=== PATIENT | female | born 1940 | race Caucasian/White ===

== ENCOUNTER 2019-06-14 02:47 | Inpatient (IN) | payer OTHER ==
[2019-06-14 03:59] LABS: Absolute Lymphocytes (CBC) 0.8 K/uL (0.7-4.9); Basophils % 1.3 % (0-1.3); Hematocrit 42.1 % (36.0-45.0); Lymphocytes % 16.1 % (15.3-44.8); MPV 10.1 fL (7.6-11.3); RBC Red Blood Cell Count 4.73 M/uL (3.86-4.86)
[2019-06-14 04:02] LABS: Protime INR 0.95
[2019-06-14 04:24] LABS: ALT/SGPT 11 U/L (12-78); AST/SGOT 13 U/L (15-37); Albumin 3.7 g/dL (3.4-5.0); Alkaline Phosphatase 84 U/L (45-117); BUN Blood Urea Nitrogen 25 mg/dL (7-18); Bicarbonate 27 mmol/L (21-32); Bilirubin Direct 0.2 mg/dL (0-0.2); Bilirubin Total 0.3 mg/dL (0.2-1.0); Glucose Level 111 mg/dL (74-106); Potassium 3.5 mmol/L (3.5-5.1); Protein, Total 7.7 g/dL (6.4-8.2); Sodium Level 138 mmol/L (136-145); Troponin (Emerg Dept Use Only) < 0.02 ng/mL (0.0-0.045)
[2019-06-14] MEDS ORDERED: ONDANSETRON 4 MG/2 ML VIAL ONE (05:02)
--- NOTE | 2019-06-14 05:13 | ER ---
Nurse's Notes [facility] Name: Theresa Duran Age: 78 yrs Sex: Female : 1940 Arrival Date: 06/14/2019 Time: 02:56 Bed 4 Private MD: Diagnosis: Transient cerebral ischemic attack, unspecified Presentation: 06/13 02:58 Chief complaint: EMS states: [facility] were toned for Pt with numbness and wh tingling of left side of face. Pt states Hx of stroke and thinks she might be having another stroke. Coronavirus screen: The patient has NOT traveled to a country currently being monitored by the CDC within the last 14 days. Ebola Screen: Patient negative for fever greater than or equal to 101.5 degrees Fahrenheit, and additional compatible Ebola Virus Disease symptoms Patient denies exposure to infectious person. Initial Sepsis Screen: Does the patient meet any 2 criteria? No. Patient's initial sepsis screen is negative. Does the patient have a suspected source of infection? No. Patient's initial sepsis screen is negative. Risk Assessment: Do you want to hurt yourself or someone else? Patient reports no desire to harm self or others. 02:58 Method Of Arrival: EMS: [facility] 02:58 Acuity: LORENA 3 03:04 Onset of symptoms was June 14, 2019. 03:04 Care prior to arrival: IV initiated. 20 GA, in the right hand, Glucose check: 113 Afib on 12 lead EKG. Historical: - Allergies: 03:03 No Known Allergies; - Home Meds: 03:03 levothyroxine 100 mcg tab 1 tab once daily [Active]; simvastatin 20 mg Oral tab 1 tab nightly [Active]; aspirin 81 mg Oral chew 1 tab once daily [Active]; clonidine HCl 0.2 mg Oral tab 1 tab 3 times per day [Active]; carbidopa-levodopa 25-100 mg Oral tab 1 tab 3 times per day [Active]; losartan-hydrochlorothiazide oral 1 tab once daily [Active]; - PMHx: 03:03 CVA; High Cholesterol; Hypertension; Parkinsons; Hypothyroidism; - PSHx: 03:03 Tubal ligation; - Immunization history:: Adult Immunizations not up to date. - Social history:: Smoking status: Patient/guardian denies using. Screenin:03 VAN Screening: Arm Drift: Patient shows no arm weakness. Visual Disturbance: No visual wh disturbance noted. Aphasia: No aphasia noted. Neglect: No neglect noted. 03:05 Abuse screen: Denies threats or abuse. Denies injuries from another. Nutritional wh screening: No deficits noted. Tuberculosis screening: No symptoms or risk factors identified. Fall Risk None identified. Assessment: 04:30 General: Appears in no apparent distress. rv 04:30 Pain: Denies pain. Neuro: Level of Consciousness is awake, alert, obeys commands, rv Oriented to person, place, time, situation. Cardiovascular: Patient's skin is warm and dry. Respiratory: Airway is patent. Derm: Skin is intact. Musculoskeletal: Reports weakness in generalized. 05:22 Reassessment: Patient appears in no apparent distress at this time. Patient and/or rv family updated on plan of care and expected duration. Pain level reassessed. Patient is alert, oriented x 3, equal unlabored respirations, skin warm/dry/pink. patient updated on the test results and plan of care. understood and agreed with the plan of care, awaiting admission. 07:02 Reassessment: Patient appears in no apparent distress at this time. Patient and/or hb family updated on plan of care and expected duration. Pain level reassessed. Patient is alert, oriented x 3, equal unlabored respirations, skin warm/dry/pink. 07:12 Reassessment: PT TO MRI. hb 07:29 Reassessment: REPORT CALLED TO HUGO RN, PT STILL IN MRI AT THIS TIME. hb Vital Signs: 02:58 BP 169 / 108; Pulse 49; Resp 18; Temp 98.2(O); Pulse Ox 95% ; Weight 86.18 kg; Height 5 lp1 ft. 5 in. (165.10 cm); 04:30 BP 154 / 86; Pulse 82; Resp 16; Pulse Ox 99% on R/A; rv 05:00 BP 138 / 96; Pulse 80; Resp 17; Pulse Ox 98% on R/A; rv 02:58 Body Mass Index 31.62 (86.18 kg, 165.10 cm) lp1 NIH Stroke Scale Scores: 07:21 NIHSS Score: 0 rv ED Course: 02:56 Patient arrived in ED. rv 02:59 Triage completed. 03:05 Eric Coker MD is Attending Physician. tw4 03:05 Maintain EMS IV. Dressing intact. Good blood return noted. Site clean \T\ dry. wh 03:05 Arm band placed on right wrist. wh 03:06 Patient has correct armband on for positive identification. Placed in gown. Bed in low wh position. Call light in reach. Side rails up X 1. site monitor on. Pulse ox on. NIBP on. 03:28 CT Stroke Brain w/o Contrast In Process Unspecified. EDMS 03:46 Initial lab(s) drawn, by me, sent to lab. EKG done, by ED staff, reviewed by Eric Coker MD. 04:15 Dustin Henriquez, RN is Primary Nurse. rv 04:18 Stroke CXR 1 View In Process Unspecified. EDMS 05:06 Sae Hernandez MD is Hospitalizing Provider. tw4 07:26 Primary Nurse role handed off by Dustin Henriquez, FRANCES bd 07:28 Debra Taylor, FRANCES is Primary Nurse. hb 08:15 No provider procedures requiring assistance completed. Patient admitted, IV remains in hb place. Administered Medications: 05:00 Drug: Zofran (Ondansetron) 4 mg Route: IVP; Site: right hand; rv 07:00 Follow up: Response: No adverse reaction hb Outcome: 05:12 Decision to Hospitalize by Provider. tw4 08:15 Admitted to Med/surg accompanied by tech, via wheelchair. hb 08:15 Condition: stable 08:15 Instructed on the need for admit, Demonstrated understanding of instructions. 08:39 Patient left the ED. hb NIH Stroke Scale - NIH Stroke Score Date: 06/14/2019 Time: 07:21 Total Score = 0 1a. Level of Consciousness (LOC) - 0(Alert) 1b. Level of Consciousness (LOC) (Year \T\ Age) - 0(Both) 1c. LOC Commands (Open \T\ Closes Eyes/Lunchroom Mother) - 0(Both) 2. Best Gaze (Lateral Gaze Paresis) - 0(Normal) 3. Visual Field Loss - 0(No visual loss) 4. Facial Palsy - 0(Normal) 5a. Left Arm: Motor (10-second hold) - 0(No drift) 5b. Right Arm: Motor (10-second hold) - 0(No drift) 6a. Left Leg: Motor (5-second hold - always test supine) - 0(No drift) 6b. Right Leg: Motor (5-second hold - always test supine) - 0(No drift) 7. Limb Ataxia (finger/nose \T\ heel/guillen - test with eyes open) - 0(Absent) 8. Sensory Loss (pinprick arms/legs/face) - 0(Normal) 9. Best Language: Aphasia (description/naming/reading) - 0(No aphasia) 10. Dysarthria (speech clarity - read or repeat words) - 0(Normal) 11. Extinction and Inattention (visual/tactile/auditory/spatial/personal) - 0(No abnormality) Initials: rv Signatures: Dispatcher [employer] EDMS Geni Lynn Laura, RN RN lp1 Debra Taylor RN RN Rishi Rodríguez Eric Coker MD MD tw4 Dustin Henriquez RN RN rv Corrections: (The following items were deleted from the chart) 03:01 02:58 BP 169 / 108; Pulse 49bpm; Resp 18bpm; Pulse Ox 95%; 86.18 kg; Height 5 lp1 ft. 5 in.; BMI: 31.6; 03:46 03:04 Care prior to arrival: IV initiated. 20 GA, in the right hand, Glucose check: 113 Afib on 12 lead EKG :46 03:05 Maintain EMS IV. Dressing intact. Site clean \T\ dry. [facility]
--- NOTE | 2019-06-14 05:13 | EDPHYS ---
Physician Documentation [facility] Name: Theresa Duran Age: 78 yrs Sex: Female : 1940 Arrival Date: 06/14/2019 Time: 02:56 Bed 4 Private MD: ED Physician Eric Coker HPI: 06/13 03:48 This 78 yrs old Female presents to ER via EMS with complaints of Numbness Of tw4 Face. 03:48 The patient's problem is reported as paresthesias, in left upper extremity, in left tw4 lower extremity, in left side of face. Onset: The symptoms/episode began/occurred just prior to arrival, 1 hour(s) ago. Duration: The episode is continuous. Context: symptoms became apparent at 01:00. The symptoms are alleviated by nothing. The symptoms are aggravated by nothing. Associated signs and symptoms: The patient has no apparent associated signs or symptoms. The patient has not experienced similar symptoms in the past. Historical: - Allergies: 03:03 No Known Allergies; wh - Home Meds: 03:03 levothyroxine 100 mcg tab 1 tab once daily [Active]; simvastatin 20 mg Oral tab 1 tab wh nightly [Active]; aspirin 81 mg Oral chew 1 tab once daily [Active]; clonidine HCl 0.2 mg Oral tab 1 tab 3 times per day [Active]; carbidopa-levodopa 25-100 mg Oral tab 1 tab 3 times per day [Active]; losartan-hydrochlorothiazide oral 1 tab once daily [Active]; - PMHx: 03:03 CVA; High Cholesterol; Hypertension; Parkinsons; Hypothyroidism; - PSHx: 03:03 Tubal ligation; - Immunization history:: Adult Immunizations not up to date. - Social history:: Smoking status: Patient/guardian denies using. ROS: 03:48 Constitutional: Negative for fever, chills, and weight loss, Eyes: Negative for injury, tw4 pain, redness, and discharge, Cardiovascular: Negative for chest pain, palpitations, and edema, Respiratory: Negative for shortness of breath, cough, wheezing, and pleuritic chest pain, Abdomen/GI: Negative for abdominal pain, nausea, vomiting, diarrhea, and constipation, MS/Extremity: Negative for injury and deformity, Skin: Negative for injury, rash, and discoloration. 03:48 Neuro: Positive for numbness, Negative for altered mental status, dizziness, gait disturbance, loss of consciousness, speech changes, syncope, near syncope, tingling, tinnitus, tremor, visual changes. Exam: 03:48 Radiologist reports: no acute changes tw4 03:48 Constitutional: This is a well developed, well nourished patient who is awake, alert, and in no acute distress. Head/Face: Normocephalic, atraumatic. Chest/axilla: Normal chest wall appearance and motion. Nontender with no deformity. No lesions are appreciated. Cardiovascular: Regular rate and rhythm with a normal S1 and S2. No gallops, murmurs, or rubs. Normal PMI, no JVD. No pulse deficits. Respiratory: Lungs have equal breath sounds bilaterally, clear to auscultation and percussion. No rales, rhonchi or wheezes noted. No increased work of breathing, no retractions or nasal flaring. Abdomen/GI: Soft, non-tender, with normal bowel sounds. No distension or tympany. No guarding or rebound. No evidence of tenderness throughout. Back: No spinal tenderness. No costovertebral tenderness. Full range of motion. MS/ Extremity: Pulses equal, no cyanosis. Neurovascular intact. Full, normal range of motion. 03:48 Neuro: Orientation: to person, place \T\ time. Mentation: is normal, Memory: Motor: is normal, Sensation: numbness, that is mild, of the left cheek and left jaw. Vital Signs: 02:58 BP 169 / 108; Pulse 49; Resp 18; Temp 98.2(O); Pulse Ox 95% ; Weight 86.18 kg; Height 5 lp1 ft. 5 in. (165.10 cm); 04:30 BP 154 / 86; Pulse 82; Resp 16; Pulse Ox 99% on R/A; rv 05:00 BP 138 / 96; Pulse 80; Resp 17; Pulse Ox 98% on R/A; rv 02:58 Body Mass Index 31.62 (86.18 kg, 165.10 cm) lp1 NIH Stroke Scale Scores: 07:21 NIHSS Score: 0 rv MDM: 03:05 Patient medically screened. tw4 03:48 Differential diagnosis: CVA, TIA, Parkinson disease. Data reviewed: vital signs, nurses tw4 notes. Data reviewed: lab test result(s), cardiac enzymes, CBC, Flu: hepatic panel, EKG, radiologic studies, CT scan. Data interpreted: Pulse oximetry: Interpretation: normal. Counseling: I had a detailed discussion with the patient and/or guardian regarding: the historical points, exam findings, and any diagnostic results supporting the discharge/admit diagnosis. 06/13 03:06 Order name: Hepatic Function; Complete Time: 05:02 tw 06/13 05:04 Interpretation: Normal except: AST 13; GLOB 4.0; A/G 0.9. tw4 06/13 03:06 Order name: Troponin (emerg Dept Use Only); Complete Time: 05:02 tw 06/13 05:05 Interpretation: Within normal limits: TROPED < 0.02. tw4 06/13 03:06 Order name: Basic Metabolic Panel; Complete Time: 05:02 [facility] 06/13 05:04 Interpretation: Normal except: GLUC 111; BUN 25; GFR 57. tw 06/13 03:06 Order name: CBC with Diff; Complete Time: 05:02 [facility] 06/13 05:05 Interpretation: Within normal limits. tw 06/13 03:06 Order name: Protime (+inr); Complete Time: 05:02 [facility] 06/13 05:05 Interpretation: Within normal limits: PT 11.2. 06/13 03:06 Order name: Ptt, Activated; Complete Time: 05:02 [facility] 06/13 05:04 Interpretation: Normal except: PTT 23.1. tw 06/13 03:06 Order name: CT Stroke Brain w/o Contrast tw 06/13 03:56 Order name: Glucose, Ancillary Testing; Complete Time: 05:02 [facility] 06/13 05:06 Interpretation: Within normal limits: GLUC,ANCIL 112. tw4 06/13 06:20 Order name: Magnesium EDMS 06/13 06:21 Order name: Thyroid Stimulating Hormone EDWI 06/13 06:21 Order name: CBC with Automated Diff EDMS 06/13 06:21 Order name: CBC with Automated Diff EDMS 06/13 06:21 Order name: Comprehensive Metabolic Panel EDMS 06/13 06:21 Order name: Comprehensive Metabolic Panel EDMS 06/13 03:06 Order name: Stroke CXR 1 View tw4 06/13 03:06 Order name: EKG; Complete Time: 03:07 tw4 06/13 03:06 Order name: Accucheck; Complete Time: 03:45 tw4 06/13 03:06 Order name: Cardiac monitoring; Complete Time: 03:45 tw4 06/13 03:06 Order name: EKG - Nurse/Tech; Complete Time: 03:45 tw4 06/13 03:06 Order name: IV Saline Lock; Complete Time: 03:45 tw4 06/13 03:06 Order name: Labs collected and sent; Complete Time: 03:45 tw4 06/13 06:19 Order name: CONS Pharmacy Consult EDMS 06/13 06:19 Order name: CONS Physician Consult EDMS 06/13 06:20 Order name: CONS Physician Consult EDMS 06/13 06:20 Order name: Heart Healthy EDMS 06/13 06:20 Order name: EKG Electrocardiogram EDMS 06/13 06:20 Order name: EKG Electrocardiogram EDMS 06/13 06:21 Order name: Brain With Cont EDMS 06/13 06:21 Order name: Carotid Artery Bilateral EDMS 06/13 03:06 Order name: NPO; Complete Time: 03:45 tw4 06/13 03:06 Order name: O2 Per Protocol; Complete Time: 03:46 tw4 06/13 03:06 Order name: O2 Sat Monitoring; Complete Time: 03:46 tw4 06/13 03:06 Order name: Stroke Swallow Screen; Complete Time: 04:15 tw4 EC:13 Rate is 82 beats/min. Rhythm is irregular. QRS [place] is Normal. [place] interval is normal. tw4 QRS interval is normal. QT interval is normal. No Q waves. T waves are Normal. No ST changes noted. Clinical impression: NSR w/ Non-specific ST/T Changes and LVH. Interpreted by me. Reviewed by me. Administered Medications: 05:00 Drug: Zofran (Ondansetron) 4 mg Route: IVP; Site: right hand; rv 07:00 Follow up: Response: No adverse reaction hb Disposition: 06/14/19 05:12 Hospitalization ordered by Sae Hernandez for Observation. Preliminary diagnosis is Transient cerebral ischemic attack, unspecified. - Bed requested for Telemetry/MedSurg (observation). - Status is Observation. hb - Condition is Stable. - Problem is new. - Symptoms have improved. NIH Stroke Scale - NIH Stroke Score Date: 06/14/2019 Time: 07:21 Total Score = 0 1a. Level of Consciousness (LOC) - 0(Alert) 1b. Level of Consciousness (LOC) (Year \T\ Age) - 0(Both) 1c. LOC Commands (Open \T\ Closes Eyes/Search Engine Optimization Consultant) - 0(Both) 2. Best Gaze (Lateral Gaze Paresis) - 0(Normal) 3. Visual Field Loss - 0(No visual loss) 4. Facial Palsy - 0(Normal) 5a. Left Arm: Motor (10-second hold) - 0(No drift) 5b. Right Arm: Motor (10-second hold) - 0(No drift) 6a. Left Leg: Motor (5-second hold - always test supine) - 0(No drift) 6b. Right Leg: Motor (5-second hold - always test supine) - 0(No drift) 7. Limb Ataxia (finger/nose \T\ heel/guillen - test with eyes open) - 0(Absent) 8. Sensory Loss (pinprick arms/legs/face) - 0(Normal) 9. Best Language: Aphasia (description/naming/reading) - 0(No aphasia) 10. Dysarthria (speech clarity - read or repeat words) - 0(Normal) 11. Extinction and Inattention (visual/tactile/auditory/spatial/personal) - 0(No abnormality) Initials: rv Signatures: Dispatcher [employer] EDMS Bina James RN RN Debra Taylor RN RN Rishi Rodríguez Terrence, MD MD tw Dustin Henriquez RN RN rv Corrections: (The following items were deleted from the chart) 05:56 05:12 Hospitalization Ordered by Sae Hernandez MD for Observation. Preliminary mw diagnosis is Transient cerebral ischemic attack, unspecified. Bed requested for Telemetry/MedSurg (observation). Status is Observation. Condition is Stable. Problem is new. Symptoms have improved. tw4 08:39 05:56 06/14/2019 05:12 Hospitalization Ordered by Sae Hernandez MD for hb Observation. Preliminary diagnosis is Transient cerebral ischemic attack, unspecified. Bed requested for Telemetry/MedSurg (observation). Status is Observation. Condition is Stable. Problem is new. Symptoms have improved. mw
--- NOTE | 2019-06-14 06:02 | P.HP ---
Certification for Inpatient With expected LOS: >2 Midnights Patient will require the following post-hospital care: Home Health Services Practitioner: I am a practitioner with admitting privileges, knowledge of patient current condition, hospital course, and medical plan of care. Services: Services provided to patient in accordance with Admission requirements found in Title 42 Section 412.3 of the Code of Federal Regulations Patient History Date of Service: 06/14/19 Reason for admission: Facial numbness, left leg weakness History of Present Illness: 72 year old female with past medical history of HTN, HLD, Recent Parkinson disease recently diagnosed follows with Dr Jaquez , chronic right- sided tremors; developed sudden onset facial and nevaeh-oral numbness associated with left-sided weakness which started at about 1:00 a.m.. Her symptoms woke up from sleep. She was able to walk to her son's room and called the ambulance. On arrival in the ER, leg weakness seems to be improving but the facial and perioral numbness persist. She did not have any asymmetrical focal weakness. Head CT shows no acute infarct. She has been admitted for possible TIA Home medications list reviewed: Yes - Past Medical/Surgical History Has patient received pneumonia vaccine in the past: No Diabetic: No -: Hypertension -: Parkinson's disease-recently diagnosed -: Hyperlipidemia -: Hypothyroidism Past Surgical History: Patient denies surgical history - Social History Smoking Status: Never smoker Alcohol use: No CD- Drugs: No Caffeine use: No Review of Systems 10-point ROS is otherwise unremarkable Physical Examination - Physical Exam General: Alert, Oriented x3, Obese HEENT: Atraumatic, Normocephalic, PERRLA, Mucous membr. moist/pink Neck: Supple, 2+ carotid pulse no bruit, JVD not distended Respiratory: Clear to auscultation bilaterally, Normal air movement Cardiovascular: Normal pulses, Regular rate/rhythm, Normal S1 S2 Gastrointestinal: Normal bowel sounds, Soft and benign, Non-distended Musculoskeletal: No clubbing, No swelling Integumentary: No rashes, No breakdown Neurological: Normal strength at 5/5 x4 extr, Sensation intact, Other (tremors b /l UE , more over right . No protonor drift) - Studies Laboratory Data (last 24 hrs) 06/14/19 03:40: PT 11.2, INR 0.95, APTT 23.1 L 06/14/19 03:40: WBC 5.3, Hgb 14.2, Hct 42.1, Plt Count 179 06/14/19 03:40: Sodium 138, Potassium 3.5, BUN 25 H, Creatinine 0.96, Glucose 111 H, Total Bilirubin 0.3, AST 13 L, ALT 11 L, Alkaline Phosphatase 84 Imagings Data: head CT - negative Assessment and Plan - Problems (Diagnosis) (1) TIA (transient ischemic attack) Current Visit: Yes Status: Acute (2) Parkinson disease Current Visit: Yes Status: Acute (3) HTN (hypertension) Current Visit: Yes Status: Acute (4) HLD (hyperlipidemia) Current Visit: Yes Status: Acute (5) Hypothyroidism Current Visit: Yes Status: Acute - Advance Directives Does patient have a Living Will: No Does patient have a Durable POA for Healthcare: No - Code Status/Comfort Care Code Status Assessed: Yes Physician Review: Patient Assessed, Agree with Above Assessment and Plan Physician Review Additional Text: # left-sided weakness-resolved no appreciable weakness on physical exam -still subjective feeling of nevaeh-oral numbness -possibly due to TIA -we will obtain magnesium/tsh to rule out metabolic causes of numbness -we will obtain a UA to rule UTI -will obtain MRI of the brain compared to previous one from 3 months ago -will consult Neurology # hypertension-controlled, will hold all BP medication now to allow permissive hypertension - if CVA ruled out , then restart blood pressure medication for better control Time Spent Managing Pts Care (In Minutes): 60
[2019-06-14] MEDS ORDERED: MORPHINE 2 MG/ML SYR IV PRN (06:13)
--- NOTE | 2019-06-14 08:49 | EKG ---
Test Date: 2019-06-14 Test Time: 03:34:28 Personal Injury Legal Assistant: LOREN MEASUREMENT RESULTS: Intervals: Rate: 82 AR: QRSD: 116 QT: 394 QTc: 460 Ethel: P: AR: QRS: -2 T: 109 INTERPRETIVE STATEMENTS: Sinus rhythm occasional premature ventricular complexes Intraventricular conduction delay Cannot rule out Septal infarct, age undetermined ST & T wave abnormality, consider lateral ischemia Abnormal ECG Compared to the ECG from 2005 PVC s are now present Septal infarct is now present Intraventricular conduction delay is now present Electronically Signed On 06-14-19 08:48:13 CDT by Ian Luque
--- NOTE | 2019-06-14 08:54 | RAD REPORT ---
EXAM DESCRIPTION: RAD - Chest Single View - 06/14/2019 4:18 am CLINICAL HISTORY: .. Chest pain. COMPARISON: No comparisons FINDINGS: Portable technique limits examination quality. The lungs are grossly clear. The heart is normal in size. No displaced fractures. IMPRESSION: No acute intrathoracic process suspected.
--- NOTE | 2019-06-14 09:07 | RAD REPORT ---
EXAM DESCRIPTION: US - CP - 06/14/2019 7:02 am CLINICAL HISTORY: cva Headache, drowsiness, CVA symptomology COMPARISON: Carotid Artery Bilateral dated 03/06/2019 TECHNIQUE: Real-time sonographic evaluation of both carotid systems was performed. Doppler interroga tion was performed with waveform tracing bilaterally. FINDINGS: Normal high resistance waveforms are noted in both external carotid arteries. The common c arotid arteries and internal carotid arteries show normal low resistance waveforms. No significant plaque formation is seen. Peak systolic and end diastolic velocity values and the ICA/ CCA ratios are in the non-hemodynamically significant range. Antegrade flow seen in both vertebral arteries. IMPRESSION: Mild hard plaque is seen in both proximal internal carotid arteries. No evidence of a hemodynamically significant stenosis.
--- NOTE | 2019-06-14 09:24 | RAD REPORT ---
EXAM DESCRIPTION: MRI - Brain W/Wo Cont - 06/14/2019 7:50 am CLINICAL HISTORY: TIA Headache, drowsiness, CVA symptomology COMPARISON: Ct Stroke Brain Wo Cont dated 06/14/2019; Brain Wo Cont dated 02/27/2019 TECHNIQUE: Multi-sequence, multiplanar MR imaging of the brain was performed with contrast. FINDINGS: Moderate T2 and FLAIR hyperintensity in the periventricular and deep white matter is prese nt compatible with chronic microvascular ischemia.10 mm area restricted diffusion is present in the r ight basal ganglia posteriorly suggesting small nonhemorrhagic CVA. Punctate hypointensity within thi s region is also present. No edema or shift of midline structures. No hemorrhage seen.No intracranial mass. DWI is negative for acute CVA. The midline structures are normally formed. Mastoid air cells and paranasal sinuses are clear. Post-contrast images show no abnormal enhancement to suggest tumor or infection. IMPRESSION: Acute nonhemorrhagic 10 mm infarct suspected right basal ganglia.
[2019-06-14 09:54] VITALS: BMI 30.7
--- NOTE | 2019-06-14 10:30 | CON ---
History Of Present Illness: Mrs. Duran is 78. She came to the hospital because the left side of he r face tingle. Her left arm would not work appropriately. It felt numb and she could not move it an d her left leg was weak. Most of that resolved but she still has symptoms in her left arm. The diag nosis is she had a TIA with a residual ischemic neurological deficit. All of our vascular studies ar e still pending, but in February 2019 just a few months ago, a carotid Doppler was normal. I believe some other studies are going to be done. The patient does not have a history of AFib, but she does admit to feeling her heart race, is quite reluctant to actually discuss how much it was. She fought off the questions, but apparently several times a week, she will feel her heart race. She thinks it goes on for a few minutes at a time. She did not think it goes on for hours at a time. She never so ught medical attention for it. The patient has never had myocardial infarction, any vascular surgery . She has hypertension and Parkinson disease. Medications: She takes simvastatin, carbidopa levodopa, olmesartan, hydrochlorothiazide, clonidine, levothyroxine, and aspirin. Allergies: NONE. Social History: Uses no tobacco. Physical Examination: General: She appears to be her stated age of 78, 5 feet 6 inches, 190 pounds. Alert, oriented, plea segundo. No speech abnormalities. Lungs: Clear. There is no carotid bruit. Heart: Within normal limits. Abdomen: Soft. Extremities: Normal. Impression: The patient is having transient ischemic attacks without a vascular explanation for it, now it looks like she has had a small stroke 10 mm right basal ganglia that would account for the sym ptoms that she is having and will explain everything. I think we have to decide whether she has atri al fibrillation or not, in which case an anticoagulant therapy would change and several other things would change, so whenever she is ready to be discharged home, she should get an event monitor that go es on for a month. If that fails to detect anything, she still has transient ischemic attacks or str okes, then she should have an implanted loop recorder. I suspect that her neurological symptoms may largely be caused by atrial fibrillation and transient ischemic attacks at least it is a possibility. We need to examine carefully. The carotid artery ultrasound done this morning just shows mild plaq ue. No hemodynamically significant stenosis. No ulcerated plaque. SH/MODL Voice ID: [id number] Report ID: [id number]
[2019-06-14] MEDS ORDERED: ACETAMINOPHEN 500 MG TAB PO PRN (12:40)
--- NOTE | 2019-06-14 12:54 | RAD REPORT ---
EXAM DESCRIPTION: Ct Stroke Brain Wo Cont ADDENDUM #1 Findings directly communicated to Dr. Eric Coker at 0339 hours on 06/14/2019. Electronically signed by: Mony Elder DO 06/14/2019 3:41 AM CDT End of Addendum CT HEAD WITHOUT CONTRAST CLINICAL HISTORY: WEAKNESS COMPARISON: MRI brain without contrast 02/27/2019. TECHNIQUE: Axial unenhanced CT imaging of the brain. Reformatted coronal and sagittal images obtaine d. This examination was performed according to our departmental dose optimization program, which include s automated exposure control, adjustment of the mA and/or kV according to patient size and/or use of iterative reconstruction technique. FINDINGS: There is significant decreased white matter attenuation throughout both cerebral hemispher es due to chronic microvascular ischemic change. There is a hypodensity within the left posterior tem poral parietal periventricular white matter due to remote lacunar infarct. There is no intracranial b leed. No mass or midline shift. No hyperdense vessel. There is mild prominence of the ventricles and extra-axial fluid spaces due to cortical volume loss. Asymmetry ventricle size is within normal varia bility. Normal cerebellum and vermis. Fourth ventricle is midline. No cerebellar tonsillar ectopia. Sella con tents appear normal. Intraorbital contents are normal. Clear paranasal sinuses. Mastoid air cells are partially opacified on the right side and clear on the left side. Intact skull base and calvarium. Unremarkable scalp sof t tissues. IMPRESSION: 1. Mild generalized atrophy with significant chronic microvascular ischemic change. No i ntracranial acute finding. Please note, acute infarct could be obscured by the underlying chronic whi te matter disease. If there is high clinical concern for acute infarction, MRI brain recommended. 2. Mild right mastoid effusion. Electronically signed by: Mony Elder DO 06/14/2019 3:38 AM CDT Due to temporary technical issues with the PACS/Fluency reporting system, reports are being signed by the in house radiologist as a courtesy to ensure prompt reporting. The interpreting radiologist is f ully responsible for the content of the report.
--- NOTE | 2019-06-14 13:43 | ECHO ---
HEIGHT: 5 ft 6 in WEIGHT: 190 lb 0 oz DATE OF STUDY: 06/14/[address]: Ian Luque MD 2-DIMENSIONAL: YES M.MODE: YES DOPPLER: YES COLOR FLOW: YES TDS: PORTABLE: DEFINITY: BUBBLE STUDY: DIAGNOSIS: STROKE CARDIAC HISTORY: CATHERIZATION: NO SURGERY: NO PROSTHETIC VALVE: NO PACEMAKER: NO MEASUREMENTS (cm) DIASTOLIC (NORMALS) SYSTOLIC (NORMALS) IVSd 1.0 (0.6-1.2) LA Diam 2.6 (1.9-4.0) LVEF 60% LVIDd 4.3 (3.5-5.7) LVIDs 2.9 (2.0-3.5) %FS 32% LVPWd 1.2 (0.6-1.2) Ao Diam 3.5 (2.0-3.7) 2 DIMENSIONAL ASSESSMENT: RIGHT ATRIUM: NORMAL LEFT ATRIUM: NORMAL RIGHT VENTRICLE: NORMAL LEFT VENTRICLE: NORMAL TRICUSPID VALVE: NORMAL MITRAL VALVE: NORMAL PULMONIC VALVE: NORMAL AORTIC VALVE: NORMAL PERICARDIAL EFFUSION: NONE AORTIC ROOT: NORMAL LEFT VENTRICULAR WALL MOTION: NORMAL DOPPLER/COLOR FLOW: IMPAIRED LEFT VENTRICULAR RELAXATION. MILD TRICUSPID REGURGITATION. NORMAL RIGHT VENTRICULAR SYSTOLIC PRESSURE. COMMENTS: NORMAL 2-DIMENSIONAL ECHOCARDIOGRAM. IMPAIRED LEFT VENTRICULAR RELAXATION. MILD TRICUSPID REGURGITATION. MILD TRICUSPID REGURGITATION. NORMAL SALINE CONTRAST STUDY. NO EVIDENCE OF RIGHT TO LEFT SHUNT. TECHNOLOGIST: CHRIS SOTO
[2019-06-14] MEDS ORDERED: CARBIDOPA/LEVODOPA 25/100 TAB PO SCH (15:00)
[2019-06-14] MEDS ORDERED: ENOXAPARIN 40 MG/0.4 ML SQ SCH (17:00)
[2019-06-14] MEDS: ONDANSETRON 4 MG/2 ML VIAL IV PRN (17:43)
--- NOTE | 2019-06-14 18:12 | PN ---
Date of Progress Note: 06/14/2019 Subjective: Patient seen and examined. Chart reviewed and case discussed with RN. Patient states her weakness on the left side and numbness and tingling on her face have improved. Medications: List reviewed. Physical Examination: Vital Signs: Temperature 98.6, heart rate 104, blood pressure 185/77, respirations 18, O2 of 97% on room air. General: Awake, alert, oriented x3. Elderly female. CV: S1, S2. Regular rate and rhythm. Peripheral pulses present. Respiratory: Moving air well bilaterally. No wheezing or stridor. Gastrointestinal: Abdomen is soft, nontender, nondistended. Positive bowel sounds. Extremities: No clubbing, cyanosis, or edema. NEUROLOGIC: Patient has some weakness on the left upper and lower extremity. Patient's facial numbness is resolved. Sensation decreased to light touch left lower ext Laboratory Data: Sodium 138, potassium 3.5, chloride 106, CO2 of 27, BUN 25, creatinine 0.96, glucose 111, calcium 8.7, AST 13, ALT 11. Troponin less than 0.02. TSH 0.02. Echocardiogram shows ejection fraction of 60%, impaired left ventricular relaxation. No evidence of xsvjp-al-asic shunt. MRI of the brain shows acute nonhemorrhagic 10 mm infarct suspected right basal ganglia. Carotid artery ultrasound shows mild heart plaque seen in both proximal internal carotid arteries. No evidence of hemodynamically significant stenosis. Assessment: 78-year-old female with: 1. Acute cerebrovascular accident, nonhemorrhagic 10 mm infarct in the right basal ganglia. Patient had left-sided weakness and perioral numbness, which have improved but not completely resolved. We will start on stroke guidelines with aspirin and statin and we will add Plavix as patient has been on aspirin previously. Dr. Jaquez is patient's neurologist. He has been consulted. Carotid artery ultrasound shows no stenosis. Echocardiogram does not show left- to-right shunt. 2. History of Parkinson disease. Patient has pill rolling tremor. We will continue home medications as appropriate. 3. Essential hypertension, stable. 4. Mixed hyperlipidemia. Continue statin. 5. Hypothyroidism. Continue Synthroid. TSH is low. 6. Deep vein thrombosis prophylaxis with Lovenox. Plan: Allow permissive hypertension. Follow up on Neurology recommendations, likely discharge in am as patient is making quicker recovery than anticipated. PT/OT eval. ADDENDUM. Patient not wanting to go to inpatient rehab despite not being able to safely ambulate by herself without any assistive devices. Will set up for home health w PT /EVAN Voice ID: [id number] Report ID: [id number] MTDD
[2019-06-14] MEDS ORDERED: CLOPIDOGREL 75 MG TABLET PO ONE (20:15)
[2019-06-14] MEDS ORDERED: ATORVASTATIN 40 MG TAB PO SCH (21:00)
[2019-06-14] MEDS ORDERED: ATORVASTATIN 10 MG TAB PO SCH (21:00)
--- NOTE | 2019-06-14 21:33 | CON ---
Date of Consultation: 06/14/2019 Reason: Stroke. History: 78-year-old lady who came to my attention fairly recently, tremor on the right and gait difficulties. She has right tremor predominant Parkinson disease as part of her workup for that. She had studies. Brain MRI in February of 2019, demonstrated multiple acute to subacute nonhemorrhagic infarcts in bilateral subcortical as well as extensive chronic ischemic change, slightly concerning for cardioembolic process, although there are small infarcts proper. Doppler was negative. She was placed on carbidopa levodopa and she had some improvement in the tremor and the generalized bradykinesia, but then last night she woke up at 2 o'clock in the morning and had left-sided weakness and numbness and worsening gait difficulties where she is really unable walk unassisted. At this point in time the grandson whom she lives with , who is very attentive immediately considered the possibility of stroke, EMS was summoned, and she was brought to the emergency department, not felt to be a tPA candidate as 1; she woke with deficit and 2; symptoms were improving. CT scan was unremarkable. She was admitted to the hospital. Since being admitted , she has continued to have improvement in her symptoms and brain MRI demonstrates acute infarct in the right basal ganglia region 10 mm. Carotid Doppler; no stenosis. Lipids are pending. Patient has improved, but she has now a mild left hemiparesis on top of chronic right tremor dominant Parkinson's and just is having significant impairment in overall mobility. Plavix has been added to her regimen. We will give her a dose tonight and then start her routine tomorrow. We have added aspirin and the carbidopa levodopa at the last visit. Consultation was requested. Past Medical History: Hypertension, hypothyroidism, Parkinson disease. Medications: Currently aspirin, Lipitor 40, Sinemet 25/100 t.i.d., Plavix, Lovenox, Synthroid. Allergies: NONE. Social History: She lives with her grandson. She is generally independent with basic activities of daily living. Family History: Negative. Review of Systems: General: Chronically ill. Eyes: Negative. Ears, Nose, Throat: Negative. Cardiovascular: As alluded to. She has been seen by Cardiology as well as her EKG is somewhat abnormal and she has frequent extra beats on auscultation. Pulmonary: Negative. GI: Negative. : Negative. Musculoskeletal: As alluded to. Neurologic: As alluded to. Psychiatric: Negative. Endocrine: Hypothyroidism. Hematologic: Negative. Physical Examination: Vital Signs: 99, 85, 18, 156/80. General: She is a pleasant lady, lying in bed, in no distress. Heart: Sinus rhythm with frequent extra beats. No carotid bruits. Lungs: Clear. Abdomen: Soft. Bowel sounds present. Neuro: She is awake, alert, oriented. Pupils reactive. Ocular motion full. Visual gallardo full. Facial strength and sensation normal. No aphasia. No dysarthria. Tongue protrudes evenly. Soft palate elevates symmetrically bilaterally. Extremities: Examination of her extremities reveal resting tremor on the right , rigidity and bradykinesia on the right with full strength. Examination of the left reveals minimal rigidity and bradykinesia with full strength, but pronator drift, dyspraxia, and decreased light touch on the left. No cortical extinction. Reflexes are 1/4. Toes are neutral. Cerebellar exam demonstrates no ataxia given the aforementioned. She has significant impairment in bed mobility. She has a left hemiparetic gait on top of chronic shuffling parkinsonian gait and is unable to walk unassisted. Impression: 1. Cerebral infarction, acute right basal ganglia ischemic. 2. Parkinson disease. Plan: 1. Dual anti-platelet therapy. Current recommendation is for 21 to 30 days and then change that over to platelet monotherapy, likely just the Plavix since she had the event despite taking aspirin. She will need a bare minimum Home Health upon discharge. She is not particularly amenable to inpatient rehab, although that is another option and she will additionally need some durable medical equipment like a bedside commode and a shower chair. We will make those arrangements prior to discharge. 2. With regard to the Parkinson disease, we will increase the Sinemet to q.i.d. as it is still not quite ideally controlled. 3. We will check a sedimentation rate and B12 level on the morning as well. Thank you for the consult. We will continue to follow with you. As noted we will be happy to see her back in the office in 2 to 4 weeks post discharge. BAILEY Voice ID: [id number] Report ID: [id number] CAR
[2019-06-14] MEDS: CARBIDOPA/LEVODOPA 25/100 TAB PO SCH (21:59)
[2019-06-15 05:01] LABS: Basophils % 1.3 % (0-1.3); Hematocrit 40.8 % (36.0-45.0); Lymphocytes % 21.7 % (15.3-44.8); MPV 10.1 fL (7.6-11.3)
[2019-06-15] MEDS: ONDANSETRON 4 MG/2 ML VIAL IV PRN (05:42)
[2019-06-15 05:48] LABS: Albumin 3.5 g/dL (3.4-5.0); Bilirubin Total 0.6 mg/dL (0.2-1.0); Potassium 3.5 mmol/L (3.5-5.1); Protein, Total 7.4 g/dL (6.4-8.2)
[2019-06-15] MEDS ORDERED: LEVOTHYROXINE SOD 0.1 MG TAB PO SCH (06:00)
[2019-06-15] MEDS: CARBIDOPA/LEVODOPA 25/100 TAB PO SCH (08:12)
[2019-06-15 08:22] VITALS: O2SAT 94
[2019-06-15 08:32] VITALS: TEMP 97.3
[2019-06-15 10:29] VITALS: BP 140/85
--- NOTE | 2019-06-15 10:42 | PN ---
She has been followed by Dr. Luque for possibility of atrial fibrillation. Patient had come in with a TIA. So far on monitor she did not have any atrial fibrillation. She also has a history of hyper tension and parkinsonism. She is feeling much better neurologically, her weakness has resolved. Rem ains in sinus rhythm. No cardiac complaint. From out standpoint she can go home and I will make arr angements for her to have a 7 or 14 day event monitor as an outpatient to see if she has an any atria l fibrillation, at which time anticoagulation would be indicated. CORA/EVAN Voice ID: [id number] Report ID: [id number]
[2019-06-15] MEDS ORDERED: ASPIRIN 81 MG CHEWABLE TABLET PO SCH (13:14)
[2019-06-15] MEDS ORDERED: CLOPIDOGREL 75 MG TABLET PO SCH (13:15)
--- NOTE | 2019-06-15 14:43 | DS ---
Date of Discharge: 06/15/2019 Consultants: 1.Dr. Jaquez with Neurology. 2.Dr. Stoner and Dr. Luque with Cardiology. Admitting Diagnoses: 1.Left-sided weakness. 2.Parkinson disease. 3.Essential hypertension. 4.Hyperlipidemia. 5.Hypothyroid. Discharge Diagnoses: 1.Acute cerebrovascular accident, nonhemorrhagic 10 mm infarct in right basal ganglia. Symptoms imp roving, not completely resolved. 2.History of Parkinson disease. 3.Essential hypertension. 4.Mixed hyperlipidemia. 5.Hypothyroidism. Hospital Course: Patient is a 78-year-old female with past medical history of hypertension, hyperlip idemia, Parkinson disease, comes in with left-sided weakness, facial numbness. Patient was admitted to the hospital to rule out CVA. Her head CT scan was initially negative. MRI of the brain was done , which did show a 10 mm nonhemorrhagic infarct in the left basal ganglia. Her carotid artery ultras ound did not show any acute hemodynamically significant stenosis. Echocardiogram was also done, show ed 60% EF. No shunt was found. Patient did have some mild tricuspid regurg and impaired left ventri cular relaxation. Dr. Luque and Dr. Stoner also saw the patient. She did not have any abnormaliti es on her tele. She will likely need to have an event monitor placed to rule out any sort of cardioe mbolic phenomenon for her stroke. Patient usually takes baby aspirin. Therefore, Plavix was added t o her regimen. Dose of statin was also increased. Patient was seen by her neurologist, Dr. Jaquez. Overall, she did well. Her facial numbness improved, however, she continued to have weakness on her left lower extremity and had difficulty with her gait and ambulating in addition to her Parkinson dis ease. Therefore, the patient was referred to inpatient rehab. However, she refused, did not wish to go to inpatient facility, therefore as she had made quicker than anticipated progress which usually would have taken at least a couple of midnights. Patient was discharged home with home health with P T. Patient understands the risks of fall and resultant consequences such as hip fracture, brain blee d, etc. Not limited to those events and including . Patient voiced understanding. Family was also at the bedside. She wished to go home with this endemic. Patient was discharged home in a stab le condition. Activity: Fall precautions. Ambulate with assist. Medications: As per medication reconciliation list. Diet: Heart healthy. Followup: Follow up with primary care physician in 2 to 3 days. Follow up with Dr. Jaquez in 2 weeks with Neurology. Return to ER for worsening condition. Physical Examination: General: Awake, alert, oriented x3. No acute distress. Elderly female. CV: S1, S2. Respiratory: Moving air well bilaterally. Abdomen: Soft, nontender, nondistended. Positive bowel sounds. Extremities: No clubbing, cyanosis, or edema. Neuro: The patient has some decreased sensations to light touch in left lower extremity. Some weakn ess on the left side, specifically left lower extremity. Patient has a pill-rolling tremor on the ri ght. Time Spent: Total time spent discharging patient was 41 minutes. /EVAN Voice ID: [id number] Report ID: [id number]
--- NOTE | 2019-06-15 16:55 | EKG ---
Test Date: 2019-06-15 Test Time: 09:01:38 Senior Accountant Cpa: JACQUI MEASUREMENT RESULTS: Intervals: Rate: 94 FL: 200 QRSD: 110 QT: 370 QTc: 462 North: P: 51 FL: 200 QRS: -39 T: 120 INTERPRETIVE STATEMENTS: Sinus rhythm with sinus arrhythmia with occasional premature atrial complexes Left axis deviation Intraventricular conduction delay non specific ST and T abnormality Cannot rule out Septal infarct, age undetermined Abnormal ECG Compared to ECG 06/14/2019 03:34:28 Myocardial infarct finding still present Electronically Signed On 06-15-19 16:54:50 CDT by Ian Luque
== END 2019-06-15 11:50 | disposition home health service (06) | DRG 65 ==
LOC: ER 02:47 → ERHOLD 06:43 → 4TH 07:42 → OBSVTOIN 11:15
PROVIDERS: ADMIT Internal Medicine; ATTEND Internal Medicine
DX: I63.9 Cerebral infarction, unspecified (principal); G81.94 Hemiplegia, unspecified affecting left nondominant side; I10 Essential (primary) hypertension; G20 Parkinson's disease; E03.9 Hypothyroidism, unspecified; R29.700 NIHSS score 0
CPT/HCPCS: 36415; 70450; 70553; 71045; 80048; 80053; 80061; 80076; 82607; 82947; 83735; 84443; 84484; 85025; 85610; 85652; 85730; 93005; 93306; 93880; 96374; 97110; 97112; 97116; 97161; 99285; G0378; J1650; J2405

== ENCOUNTER 2023-01-14 11:03 | Inpatient (IN) | payer OTHER ==
[2023-01-14 11:26] LABS: Absolute Lymphocytes (CBC) 0.9 K/uL (0.7-4.9); Hematocrit 46.8 % (36.0-45.0); MPV 9.2 fL (7.6-11.3); Platelets 240 thou/uL (152-406); RBC Red Blood Cell Count 5.03 M/uL (3.86-4.86)
[2023-01-14 11:31] LABS: Protime INR 1.16
--- NOTE | 2023-01-14 11:34 | RAD REPORT ---
EXAM DESCRIPTION: CT - Head Brain Wo Cont - 01/14/2023 11:22 am CLINICAL HISTORY: Syncope COMPARISON: 2019 TECHNIQUE: Computed axial tomography of the head was obtained. IV contrast was not requested. All CT scans are performed using dose optimization technique as appropriate and may include automated exposure control or mA/KV adjustment according to patient size. FINDINGS: An intracranial bleed is not seen The ventricles are normal in caliber No extra-axial fluid collection is noted. 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 Fluid within the sinuses/ mastoids is not seen. IMPRESSION: No acute intracranial abnormality is seen If patient's symptoms persist MRI of the brain would be recommended
[2023-01-14 11:54] LABS: Albumin 2.6 g/dL (3.4-5.0); Alkaline Phosphatase 56 U/L (45-117); BUN Blood Urea Nitrogen 17 mg/dL (7-18); Bicarbonate 23 mEq/L (21-32); Bilirubin Direct 0.1 mg/dL (0-0.2); Bilirubin Indirect, Calculated 0.2 mg/dL (0.2-0.8); Bilirubin Total 0.3 mg/dL (0.2-1.0); Glomerular Filtration Rate 77 ml/min (=/>90); Glucose Level 159 mg/dL (74-106); Protein, Total 5.7 g/dL (6.4-8.2); Sodium Level 140 mEq/L (136-145); Troponin High Sensitivity 45.6 pg/mL (<58.9)
[2023-01-14 11:55] LABS: ALT/SGPT < 10 U/L (13-56); AST/SGOT 11 U/L (15-37); Magnesium 1.9 mg/dL (1.6-2.4); Potassium 3.8 mEq/L (3.5-5.1)
[2023-01-14] MEDS ORDERED: NA CHLORIDE 0.9% 1,000 ML ONE (11:59)
[2023-01-14 12:05] LABS: Platelet Estimate ADEQ; White Blood Cell Scan OK (OK)
[2023-01-14 12:06] LABS: Blood Morphology Comment NOT SEEN (NOT SEEN)
--- NOTE | 2023-01-14 12:19 | RAD REPORT ---
EXAM DESCRIPTION: Sudhakar Single View01/14/2023 11:26 am CLINICAL HISTORY: Syncope COMPARISON: 2019 FINDINGS: The lungs appear clear of acute infiltrate. The heart is normal size Mediastinum is mildly prominent IMPRESSION: Mediastinum is mildly prominent. This probably indicates either an ectatic or aneurysmal aorta. Further evaluation with CT may be helpful
[2023-01-14 12:59] LABS: Urine Bacteria None Seen /HPF (<20); Urine Bilirubin NEGATIVE (Negative); Urine Blood Negative (Negative); Urine Clarity Turbid (Clear); Urine Color Light-Yellow (Yellow); Urine Glucose NEGATIVE (Negative); Urine Mucus Slight /HPF (None Seen); Urine Protein TRACE (Negative); Urine RBC 21-50 /HPF (None Seen); Urine Urobilinogen Normal (Normal)
--- NOTE | 2023-01-14 13:12 | ER ---
Nurse's Notes [facility] Name: Theresa Duran Age: 82 yrs Sex: Female : 1940 Arrival Date: 01/14/2023 Time: 11:03 Bed 2 Private MD: Diagnosis: Syncope, possible seizure, leukocytosis, UTI Presentation: 01/14 11:06 Chief complaint: Chief complaint: EMS states: "Pt was receiving a Vitamin injection at [address] when she became unresponsive, BP 80's systolic, began vomiting, and had bowel incontinence".EMS reports pt did not complete infusion as reported by [facility] staff. EMS upon scene arrival pt was responsive to verbal stimuli but appeared drowsy and confused. Pt currently awake and A\\T\\O x person and place. Vitamin infusion includes: Vitamin C, Vitamin B-complex, Zinc, amino blend, glutamine, arginine, ornithine, lysine, citrulline, and glutathione (see pt's paper chart for more details). 11:06 Coronavirus screen: At this time, the client does not indicate any symptoms associated [facility] with coronavirus-19. Ebola Screen: Patient denies travel to an Ebola-affected area in the 21 days before illness onset. Initial Sepsis Screen: Does the patient meet any 2 criteria? No. Patient's initial sepsis screen is negative. Does the patient have a suspected source of infection? No. Patient's initial sepsis screen is negative. Risk Assessment: Do you want to hurt yourself or someone else? Unable to obtain Other: Pt confused. Onset of symptoms was January 14, 2023. 11:06 Acuity: LORENA 2 aa5 11:06 Method Of Arrival: EMS: [facility] aa5 11:06 Care prior to arrival: Medication(s) given: Normal saline infusion, 300mls IV aa5 initiated. 20 GA, in the right forearm, Glucose check: 120. Triage Assessment: 15:12 Neuro: Level of Consciousness is awake, alert, obeys commands, Oriented to person, me1 situation. 15:12 Neuro: Reports she was getting an infusion and started feeling bad. When she woke up me1 she was told she had become unreponsive, vomited and was incontinent of stool.. Historical: - Allergies: 11:06 DONEPEZIL; aa5 - Home Meds: 11:57 levothyroxine 75 mcg oral capsule [Active]; clonidine HCl 0.1 mg oral tablet 1 tab 3 me1 times per day [Active]; carbidopa-levodopa 25-100 mg Oral tab 1 tab 4 times per day [Active]; ascorbic acid (vitamin C) 500 mg oral tablet 1 tab 2 times per day [Active]; clopidogrel 75 mg oral tablet 1 tab daily [Active]; lisinopril 10 mg Oral tablet 1 tab daily [Active]; trazodone 50 mg Oral tablet 1 tabs every day at bedtime [Active]; - PMHx: 11:06 CVA; High Cholesterol; Hypertension; Hypothyroidism; Parkinsons; Dementia; Anxiety; aa5 repeated falls; Migraine; Vitamin D deficiency; Thyroid problem; - Immunization history:: Adult Immunizations unknown. - Social history:: Smoking status: unknown. Screenin:10 [facility] ED Fall Risk Assessment (Adult) History of falling in the last 3 months, aa5 including since admission Yes- fall prone (multiple falls) (3 pts) Score/Fall Risk Level 3 or more points = High Risk Oriented to surroundings, Maintained a safe environment, Educated pt \\T\\ family on fall prevention, incl call for assistance when getting out of bed. Abuse screen: No signs of abuse noted. Nutritional screening: No deficits noted. Tuberculosis screening: No symptoms or risk factors identified. Assessment: 11:06 General: Appears comfortable, Behavior is calm, cooperative. Pain: Denies pain. Neuro: aa5 Level of Consciousness is awake, obeys commands, confused, Oriented to person, place. Cardiovascular: Heart tones S1 S2 present Rhythm is regular. Respiratory: Airway is patent Respiratory effort is even, unlabored, Respiratory pattern is regular, symmetrical. GI: Abdomen is round non-distended, Bowel sounds present X 4 quads. Abd is soft and non tender X 4 quads. 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 EENT: No signs and/or symptoms were reported regarding the EENT system. Derm: Skin is pink, warm \\T\\ dry. 11:19 Reassessment: Pt to CT via stretcher . aa5 15:50 General: Called to give report to FRANCES Bingham for the second time. Was told nurse is at me1 lunch and she will call when she gets back. . 16:38 Reassessment: attempt to call report to otilia, no answer at Nurses's station. iw 16:46 Reassessment: Otilia called back to give report, given by myself, primary RN busy with iw EMS pt. Vital Signs: 11:06 BP 102 / 58; Pulse 99; Resp 18 S; Temp 97.5(TE); Pulse Ox 96% on R/A; Weight 52 kg (M); aa5 12:31 BP 122 / 92; Pulse 99; Resp 17; Pulse Ox 97% on 1 lpm NC; me1 13:00 BP 124 / 71; Pulse 98; Resp 16; Pulse Ox 98% on 1 lpm NC; me1 14:00 BP 129 / 68; Pulse 98; Resp 16; Pulse Ox 98% on 1 lpm NC; me1 15:11 BP 135 / 65; Pulse 94; Resp 16; Pulse Ox 98% on 1 lpm NC; me1 ED Course: 11:06 Patient arrived in ED. iw 11:06 Raheem Adams MD is Attending Physician. sp3 11:06 Arm band placed on Patient placed in an exam room, on a stretcher. aa5 11:06 Patient has correct armband on for positive identification. Placed in gown. Bed in low aa5 position. Call light in reach. Side rails up X2. Client placed on continuous cardiac and pulse oximetry monitoring. NIBP monitoring applied. 11:13 Rachel Byers, RN is Primary Nurse. aa5 11:22 Triage completed. aa5 11:23 CT Head Brain wo Cont In Process Unspecified. EDMS 11:28 Chest Single View XRAY In Process Unspecified. EDMS 11:55 Report given to FRANCES Hubbard. aa5 12:51 UAM Sent. me1 13:11 Darryl Gaona is Hospitalizing Provider. sp3 14:56 Chest Angio In Process Unspecified. EDMS 15:11 Provided Education on: POC. Verbalized understanding.. me1 15:11 No provider procedures requiring assistance completed. Patient admitted, IV remains in me1 place. 15:26 Haydee Cano, RN is Primary Nurse. me1 15:26 D-Dimer Sent. me1 Administered Medications: 13:23 Drug: Rocephin - Rocephin (cefTRIAXone) IVPB 1 grams IVPB once over 30 mins; (mix in 50 me1 mL NS) Route: IVPB; Infused Over: 30 mins; Site: right forearm; 15:05 Follow up: Response: No adverse reaction; IV Status: Completed infusion me1 Medication: 15:11 VIS not applicable for this client. me1 Outcome: 13:12 Decision to Hospitalize by Provider. sp3 17:01 Admitted to Med/surg accompanied by nurse, via stretcher, with chart, iw 17:01 Condition: good 17:01 Discharge instructions given to patient, Instructed on the need for admit, 17:02 Patient left the ED. iw Signatures: Dispatcher [employer] Kymberly Hanson RN RN iw Rachel Byers RN RN aa5 Raheem Adams MD MD sp3 Haydee Cano RN RN me1 Corrections: (The following items were deleted from the chart) 11:20 11:06 PMHx: Parkinsons; aa5 aa5 11:29 11:06 Chief complaint: aa5 aa5 11:30 11:06 Chief complaint: EMS states: "Pt was receiving a Vitamin injection at [place] [address] when she became unresponsive, BP 80's systolic, began vomiting, and had bowel incontinence". EMS upon scene arrival pt was responsive to verbal stimuli but appeared drowsy and confused. Pt currently awake and A\\T\\O x person and place. Vitamin infusion includes: Vitamin C, Vitamin B-complex, Zinc, amino blend, glutamine, arginine, ornithine, lysine, citrulline, and glutathione (see pt's paper chart for more details). Chief complaint: EMS states: "Pt was receiving a Vitamin injection at [facility] when she became unresponsive, BP 80's systolic, began vomiting, and had bowel incontinence". EMS upon scene arrival pt was responsive to verbal stimuli but appeared drowsy and confused. Pt currently awake and A\\T\\O x person and place. Vitamin infusion includes: Vitamin C, Vitamin B-complex, Zinc, amino blend, glutamine, arginine, ornithine, lysine, citrulline, and glutathione (see pt's paper chart for more details). aa5
--- NOTE | 2023-01-14 13:12 | EDPHYS ---
Physician Documentation [facility] [place], [place] Name: Theresa Duran Age: 82 yrs Sex: Female : 1940 Arrival Date: 01/14/2023 Time: 11:03 Bed 2 Private MD: ED Physician Raheem Adams HPI: 01/14 11:15 This 82 yrs old Female presents to ER via Unassigned with complaints of Syncope. sp3 11:15 82-year-old female with history of Parkinson's, hypertension who at the shelter is sp3 receiving IV hydration therapy by mobile IV, with an infusion that included vitamin C, multiple B complex vitamins, zinc, and amino acid blend which included glutamine arginine ornithine lysine Citrulline and glutathione, who then proceeded to "go unresponsive" there is bowel and bladder control and then spontaneously regained consciousness. No shaking or visible seizure activity reported by bystanders. EMS was activated and they found her alert and oriented in no acute distress with normal vital signs and transported her to the ED for further evaluation. Currently patient feels improved and almost back to baseline. She currently denies headache, neck pain, fever, URI symptoms, chest pain, shortness of breath, back pain, abdominal pain, nausea, vomiting, diarrhea, focal neurological deficit, numbness or tingling, focal weakness, or any other signs or symptoms on ROS at this time.. Historical: - Allergies: 11:06 DONEPEZIL; aa5 - Home Meds: 11:57 levothyroxine 75 mcg oral capsule [Active]; clonidine HCl 0.1 mg oral tablet 1 tab 3 me1 times per day [Active]; carbidopa-levodopa 25-100 mg Oral tab 1 tab 4 times per day [Active]; ascorbic acid (vitamin C) 500 mg oral tablet 1 tab 2 times per day [Active]; clopidogrel 75 mg oral tablet 1 tab daily [Active]; lisinopril 10 mg Oral tablet 1 tab daily [Active]; trazodone 50 mg Oral tablet 1 tabs every day at bedtime [Active]; - PMHx: 11:06 CVA; High Cholesterol; Hypertension; Hypothyroidism; Parkinsons; Dementia; Anxiety; aa5 repeated falls; Migraine; Vitamin D deficiency; Thyroid problem; - Immunization history:: Adult Immunizations unknown. - Social history:: Smoking status: unknown. ROS: 11:17 Constitutional: Negative for fever, chills, and weight loss, Eyes: Negative for injury, sp3 pain, redness, and discharge, ENT: Negative for injury, pain, and discharge, Neck: Negative for injury, pain, and swelling, Cardiovascular: Negative for chest pain, palpitations, and edema, Respiratory: Negative for shortness of breath, cough, wheezing, and pleuritic chest pain, Abdomen/GI: Negative for abdominal pain, nausea, vomiting, diarrhea, and constipation, Back: Negative for injury and pain, Skin: Negative for injury, rash, and discoloration, Psych: Negative for depression, anxiety, suicide ideation, homicidal ideation, and hallucinations, Allergy/Immunology: Negative for hives, rash, and allergies, Endocrine: Negative for neck swelling, polydipsia, polyuria, polyphagia, and marked weight changes, Hematologic/Lymphatic: Negative for swollen nodes, abnormal bleeding, and unusual bruising, Exam: 11:17 Constitutional: This is a well developed, well nourished patient who is awake, alert, sp3 and in no acute distress. Head/Face: Normocephalic, atraumatic. Eyes: Pupils equal round and reactive to light, extra-ocular motions intact. Lids and lashes normal. Conjunctiva and sclera are non-icteric and not injected. Cornea within normal limits. Periorbital areas with no swelling, redness, or edema. ENT: Nares patent. No nasal discharge, no septal abnormalities noted. External auditory canals are clear. Oropharynx with no redness, swelling, or masses, exudates, or evidence of obstruction, uvula midline. Mucous membranes moist. Neck: Trachea midline, no thyromegaly or masses palpated, and no cervical lymphadenopathy. Supple, full range of motion without nuchal rigidity, or vertebral point tenderness. No Meningismus. Chest/axilla: Normal chest wall appearance and motion. Nontender with no deformity. No lesions are appreciated. Cardiovascular: Regular rate and rhythm with a normal S1 and S2. No gallops, murmurs, or rubs. Normal PMI, no JVD. No pulse deficits. Respiratory: Lungs have equal breath sounds bilaterally, clear to auscultation and percussion. No rales, rhonchi or wheezes noted. No increased work of breathing, no retractions or nasal flaring. Abdomen/GI: Soft, non-tender, with normal bowel sounds. No distension or tympany. No guarding or rebound. No evidence of tenderness throughout. Back: No spinal tenderness. No costovertebral tenderness. Full range of motion. Skin: Warm, dry with normal turgor. Normal color with no rashes, no lesions, and no evidence of cellulitis. MS/ Extremity: Pulses equal, no cyanosis. Neurovascular intact. Full, normal range of motion. Neuro: Awake and alert, GCS 15, oriented to person, place, time, and situation. Cranial nerves II-XII grossly intact. Motor strength 5/5 in all extremities. Sensory grossly intact. Cerebellar exam normal. Normal gait. Psych: Awake, alert, with orientation to person, place and time. Behavior, mood, and affect are within normal limits. 12:41 ECG was reviewed by the Attending Physician. EKG demonstrates sinus tachycardia with sp3 first-degree AV block at 210 ms, leftward axis, nonspecific diffuse ST/T changes without evidence of ischemia. Vital Signs: 11:06 BP 102 / 58; Pulse 99; Resp 18 S; Temp 97.5(TE); Pulse Ox 96% on R/A; Weight 52 kg (M); aa5 12:31 BP 122 / 92; Pulse 99; Resp 17; Pulse Ox 97% on 1 lpm NC; me1 13:00 BP 124 / 71; Pulse 98; Resp 16; Pulse Ox 98% on 1 lpm NC; me1 14:00 BP 129 / 68; Pulse 98; Resp 16; Pulse Ox 98% on 1 lpm NC; me1 15:11 BP 135 / 65; Pulse 94; Resp 16; Pulse Ox 98% on 1 lpm NC; me1 MDM: 11:07 Patient medically screened. sp3 11:17 Data reviewed: vital signs, nurses notes, shelter records, lab test result(s), sp3 EKG, radiologic studies. ED course: 82-year-old female with HPI above who likely had a syncopal episode with spontaneous recovery. This may or may not have been related to the IV infusion she was receiving. Differential diagnosis includes reaction to IV infusion, seizure, cardiac event, vasovagal syncope, general weakness, dehydration, among others. Work-up will include CT scan of the head, laboratory values, EKG and general observation and serial neurological exams. Disposition pending work-up and patient course with probable discharge home with she has no further symptoms, is ambulatory and back at her baseline.. 13:06 ED course: Patient was 17,000 white count with left shift and possible UTI. Patient's sp3 mental status is back to normal. However with her syncope and losing control of her bowels during the episode, we will admit her for 23-hour Hernández for serial cardiac markers and IV antibiotics.. 01/14 11:08 Order name: Basic Metabolic Panel; Complete Time: 12:25 sp3 01/14 11:08 Order name: CBC with Diff; Complete Time: 12:25 sp3 01/14 11:08 Order name: Hepatic Function; Complete Time: 12:25 sp3 01/14 11:08 Order name: Magnesium; Complete Time: 12:25 sp3 01/14 11:08 Order name: Protime (+inr); Complete Time: 12:25 sp3 01/14 11:08 Order name: Ptt, Activated; Complete Time: 12:25 sp3 01/14 11:08 Order name: Troponin High Sensitivity; Complete Time: 12:25 sp3 01/14 12:06 Order name: CBC Smear Scan; Complete Time: 12:25 EDMS 01/14 12:27 Order name: UAM; Complete Time: 13:05 sp3 01/14 14:31 Order name: T4 Free EDMS 01/14 14:31 Order name: Thyroid Stimulating Hormone EDMS 01/14 14:31 Order name: Urinalysis w/ reflexes EDMS 01/14 14:31 Order name: Basic Metabolic Panel EDMS 01/14 14:31 Order name: Basic Metabolic Panel EDMS 01/14 14:31 Order name: CBC with Automated Diff EDMS 01/14 14:31 Order name: CBC with Automated Diff EDMS 01/14 14:31 Order name: Lipid Profile EDMS 01/14 14:31 Order name: Lipid Profile EDMS 01/14 14:31 Order name: Magnesium EDMS 01/14 14:31 Order name: Magnesium EDMS 01/14 14:31 Order name: Phosphorus EDMS 01/14 14:31 Order name: Phosphorus EDMS 01/14 14:31 Order name: Troponin High Sensitivity EDMS 01/14 14:31 Order name: Troponin High Sensitivity EDMS 01/14 14:31 Order name: Troponin High Sensitivity EDMS 01/14 14:45 Order name: Urine Culture EDKS 01/14 14:48 Order name: D-Dimer EDKS 01/14 11:08 Order name: CT Head Brain wo Cont; Complete Time: 12:25 sp3 01/14 11:08 Order name: Chest Single View XRAY; Complete Time: 12:25 sp3 01/14 14:42 Order name: Chest Angio EDKS 01/14 11:08 Order name: EKG; Complete Time: 11:09 sp3 01/14 11:08 Order name: Cardiac monitoring; Complete Time: 11:23 sp3 01/14 11:08 Order name: EKG - Nurse/Tech; Complete Time: 11:49 sp3 01/14 11:08 Order name: IV Saline Lock; Complete Time: 11:24 sp3 01/14 11:08 Order name: Labs collected and sent; Complete Time: 11:24 sp3 01/14 11:08 Order name: NPO; Complete Time: 11:24 sp3 01/14 11:08 Order name: O2 Per Protocol; Complete Time: 11:24 sp3 01/14 11:08 Order name: O2 Sat Monitoring; Complete Time: 11:24 sp3 01/14 16:01 Order name: Labs - recollect needed: D-Dimer kj1 Administered Medications: 13:23 Drug: Rocephin - Rocephin (cefTRIAXone) IVPB 1 grams IVPB once over 30 mins; (mix in 50 me1 mL NS) Route: IVPB; Infused Over: 30 mins; Site: right forearm; 15:05 Follow up: Response: No adverse reaction; IV Status: Completed infusion me1 Disposition Summary: 01/14/23 13:12 Hospitalization Ordered Notes: Hospitalization Status: Observation sp3 Provider: Darryl Gaona sp3 Location: Telemetry/MedSurg (observation) sp3 Condition: Stable sp3 Problem: new sp3 Symptoms: have worsened sp3 Bed/Room Type: Standard sp3 Room Assignment: 203(01/14/23 14:58) em1 Diagnosis - Syncope, possible seizure, leukocytosis, UTI sp3 Forms: - Medication Reconciliation Form sp3 - SBAR form sp3 - Leadership Thank You Letter sp3 Signatures: Dispatcher [employer] Ryan Dunaway em1 Rachel Byers RN RN aa5 Marla Feliz kj1 Raheem Adams MD MD sp3 Haydee Cano RN RN me1 Corrections: (The following items were deleted from the chart) 11:20 11:06 PMHx: Parkinsons; aa5 aa5 12:43 12:41 ECG was reviewed by the Attending Physician. EKG demonstrates atrial paced rhythm sp3 at 100 bpm with TX interval of 210 leftward axis and nonspecific diffuse ST/T changes without evidence of ischemia. sp3 14:58 13:12 sp3 em1
[2023-01-14] MEDS ORDERED: CEFTRIAXONE 1000 MG/VIAL ONE (13:34)
--- NOTE | 2023-01-14 14:49 | P.HP ---
Patient History Date of Service: 01/14/23 Reason for admission: syncopal episode History of Present Illness: Theresa Duran is AN 82-year-old female with past medical history of Parkinson's, dementia, hypothyroidism, hypertension, hyperlipidemia, CVA, and migraine who presented to the ED via ambulance from [facility] with complaints of unresponsiveness during a vitamin IV infusion. Theresa remembers eating breakfast this morning and laying in her bed to watch TV. She remembers the IV was placed in her left hand and it was hurting gaining access, she remembers fluid entering the IV, she remembers waking up to vomit on her chest, laying in stool and urine in the bed. Staff from the retirement state she was unresponsive. EMS reports that she was awake, alert, and oriented upon their arrival. Theresa states that she does not have a history of seizures and does not remember having an episode similar to this in the past. Initial vitals BP 102/58, heart rate 99, respirations 18, temperature 97.5, pulse ox 96% on room air. Significant labs WBC 17.1 , troponin 45.6 redraw pen ding, and TSH 9.580. chest x-ray report reveals mediastinum is mildly prominent requiring CT angio which shows ascending thoracic aorta measuring 4.3 cm that is not seen to be dissecting. Will obtain a follow-up echo and consult Dr. Rodolfo Cardenas will be admitted to hospitalist service for further evaluation and treatment of syncopal episode. Allergies No Known Allergies Allergy (Unverified 06/14/19 07:13) Home Medications: Aspirin Chewable [Aspirin Chewable*] 1 tab PO DAILY 06/14/19 Clonidine HCl [Catapres*] 0.2 mg PO TID 06/14/19 Levothyroxine Sodium 100 mcg PO [id number] 06/14/19 Olmesartan/Hydrochlorothiazide [Olmesartan-Hctz 40-12.5 mg Tab] 1 each PO DAILY 06/14/19 Atorvastatin Calcium [Lipitor] 40 mg PO BEDTIME #30 tab 06/15/19 Carbidopa/Levodopa [Carbidopa-Levodopa 25-100 Tab] 1 tab PO QID #90 tablet 06/15/19 Clopidogrel Bisulfate [Plavix*] 75 mg PO DAILY #30 tablet 06/15/19 - Past Medical/Surgical History Diabetic: No -: Hypertension -: Parkinson's disease-recently diagnosed -: Hyperlipidemia -: Hypothyroidism -: Varicose vein sx on the left leg - Family History Mother -: Heart disease, Diabetes - Social History Alcohol use: No CD- Drugs: No Caffeine use: No Review of Systems Eyes: Unremarkable ENT: Unremarkable Respiratory: Unremarkable Cardiovascular: Unremarkable Gastrointestinal: Vomiting, Other (uncontrolled bowel) Genitourinary: Other (uncontrolled urination) Musculoskeletal: Unremarkable Integumentary: Unremarkable Neurological: Other ("blacked out") Physical Examination - Physical Exam General: In no apparent distress HEENT: Atraumatic, Normocephalic, PERRLA Neck: Supple, 2+ carotid pulse no bruit, JVD not distended Respiratory: Clear to auscultation bilaterally, Normal air movement Cardiovascular: No edema, Normal pulses, Regular rate/rhythm, Normal S1 S2 Capillary refill: <2 Seconds Gastrointestinal: Normal bowel sounds, Soft and benign Musculoskeletal: No clubbing, No swelling, No contractures Integumentary: No rashes, No breakdown, No significant lesion Neurological: Normal strength at 5/5 x4 extr, Normal tone, Dementia - Studies Laboratory Data (last 24 hrs) 01/14/23 01/14/23 01/14/23 11:18 11:18 11:18 WBC 17.10 H Hgb 15.5 H Hct 46.8 H Plt Count 240 PT 12.8 H INR 1.16 APTT 29.7 Sodium 140 Potassium 3.8 BUN 17 Creatinine 0.78 Glucose 159 H Magnesium 1.9 Total Bilirubin 0.3 AST 11 L ALT < 10 L Alkaline Phosphatase 56 Assessment and Plan - Plan Assessment and Plan Syncopal episode Leukocytosis 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 Mild fusiform aneurysmal dilation of the ascending thoracic aorta up to 4.3 cm in caliber -ECHO pending -telemetry -Keppra PO BID -Consult Dr. 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
--- NOTE | 2023-01-14 15:41 | RAD REPORT ---
EXAM DESCRIPTION: CT - Chest Angio - 01/14/2023 2:54 pm CLINICAL HISTORY: enlarged mediastinum on CXR COMPARISON: Chest Single View dated 01/14/2023 TECHNIQUE: Thin axial CT images of the chest were obtained following administration of 100 mL Isovue 370 IV contrast. Multiplanar reconstructions, and maximum intensity projection reconstructions were generated and reviewed. Exam utilizes a protocol for optimal evaluation of pulmonary arterial tree. All CT scans are performed using dose optimization technique as appropriate and may include automated exposure control or mA/KV adjustment according to patient size. FINDINGS: Pulmonary arteries are normal. No emboli or other suspicious finding. Beam hardening artif act somewhat limits evaluation at the lung bases. 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 Two vessel configuration of the arch. No evidence of dissecti on or mural hematoma. Mild to moderate burden of mixed density atherosclerotic plaque particularly al margaret the descending aorta. . Mild dependent subsegmental right more than left basilar atelectasis. No suspicious mass or infiltrat e in the lung parenchyma. No pleural thickening or pleural effusion. No pneumothorax. No abnormal mediastinal or hilar masses or lymphadenopathy seen. No chest wall mass or abnormal axill iary lymphadenopathy. Nonspecific mild fat stranding in the retroperitoneum, along the precaval region and second part of d uodenum, nonspecific. Moderate gallbladder distention. 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 IMPRESSION: No evidence of acute central pulmonary emboli. 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 Nonspecific mild fat stranding in the retroperitoneum, may reflect a mild infectious or inflammatory process such as duodenitis, although other possibilities such as focal pancreatitis or cholangitis ar e possible. Clinical and lab correlation is recommended. 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
[2023-01-14 16:26] LABS: Thyroid Stimulating Hormone 9.58 uIU/mL (0.358-3.740)
[2023-01-14] MEDS: CARBIDOPA/LEVODOPA 25/100 TAB PO SCH ×2 (18:10→20:43)
[2023-01-14] MEDS: NA CHLORIDE 0.9% 1,000 ML IV SCH (18:10)
[2023-01-14] MEDS ORDERED: INFLUENZA VACCINE (for 6+ mo) 0.5 ML DOSE IMVAC ONE (20:00)
[2023-01-14] MEDS: ATORVASTATIN 40 MG TAB PO SCH (20:42)
[2023-01-14] MEDS: levETIRAcetam 500 MG TAB PO SCH (20:42)
[2023-01-15 03:28] LABS: Absolute Lymphocytes (CBC) 1.1 K/uL (0.7-4.9); Hematocrit 37.2 % (36.0-45.0); Lymphocytes % 14.6 % (15.3-44.8); MCV 92.1 fL (80-100); MPV 9.3 fL (7.6-11.3); Platelets 185 thou/uL (152-406); RBC Red Blood Cell Count 4.04 M/uL (3.86-4.86)
[2023-01-15 03:43] LABS: Magnesium 1.9 mg/dL (1.6-2.4); Phosphorus 2.9 mg/dL (2.5-4.9); Potassium 3.2 mEq/L (3.5-5.1)
[2023-01-15] MEDS: LEVOTHYROXINE SOD 0.1 MG TAB PO SCH (05:27)
[2023-01-15] MEDS ORDERED: POTASSIUM 25 MEQ EFFERV TAB PO ONE ×2 (06:12→06:13)
[2023-01-15] MEDS: ENOXAPARIN 40 MG/0.4 ML SQ SCH (08:57)
[2023-01-15] MEDS: NA CHLORIDE 0.9% 1,000 ML IV SCH ×2 (08:57→20:44)
[2023-01-15] MEDS: ASPIRIN 81 MG CHEWABLE TABLET PO SCH (08:58)
[2023-01-15] MEDS: CLOPIDOGREL 75 MG TABLET PO SCH (08:58)
[2023-01-15] MEDS: CEFTRIAXONE 1,000 MG in NA CHLORIDE 0.9% 50 ML IVPB SCH (08:58)
[2023-01-15] MEDS: levETIRAcetam 500 MG TAB PO SCH ×2 (08:58→20:45)
[2023-01-15] MEDS: CARBIDOPA/LEVODOPA 25/100 TAB PO SCH ×4 (09:20→20:46)
--- NOTE | 2023-01-15 13:40 | P.PN ---
Subjective Date of Service: 01/15/23 Chief Complaint: syncopal episode Subjective: No new changes HPI 01/14/23: Theresa Duran is AN 82-year-old female with past medical history of Parkinson's, dementia, hypothyroidism, hypertension, hyperlipidemia, CVA, and migraine who presented to the ED via ambulance from the half-way with complaints of unresponsiveness during a vitamin IV infusion. Theresa remembers eating breakfast this morning and laying in her bed to watch TV. She remembers the IV was placed in her left hand and it was hurting gaining access, she remembers fluid entering the IV, she remembers waking up to vomit on her chest, laying in stool and urine in the bed. Staff from the half-way state she was unresponsive. EMS reports that she was awake, alert, and oriented upon their arrival. Theresa states that she does not have a history of seizures and does n ot remember having an episode similar to this in the past. Initial vitals BP 102/58, heart rate 99, respirations 18, temperature 97.5, pulse ox 96% on room air. Significant labs WBC 17.1 , troponin 45.6 redraw pending, and TSH 9.580. chest x-ray report reveals mediastinum is mildly prominent requiring CT angio which shows ascending thoracic aorta measuring 4.3 cm that is not seen to be dissecting. Will obtain a follow-up echo and consult Dr. Reynolds Theresa will be admitted to hospitalist service for further evaluation and treatment of syncopal episode. 01/15/23: Theresa is awake and pleasantly confused. She stated her age as 42, she thinks her house is outside her window. Serial Troponin 45/200/148, consulted Dr. Reynolds, waiting for recommendations. She denies fever, chills, CP, SOB, and BARRON. Physical Examination - Vital Signs Temperature: 98.4 F Blood Pressure: 156/70 Pulse: 71 Respirations: 16 Pulse Ox (%): 98 Assessment And Plan - Plan Physical Exam General: In no apparent distress HEENT: Atraumatic, Normocephalic, PERRLA Neck: Supple, 2+ carotid pulse no bruit, JVD not distended Respiratory: Clear to auscultation bilaterally, Normal air movement Cardiovascular: No edema, Normal pulses, Regular rate/rhythm, Normal S1 S2 Capillary refill: <2 Seconds Gastrointestinal: Normal bowel sounds, Soft and benign Musculoskeletal: No clubbing, No swelling, No contractures Integumentary: No rashes, No breakdown, No significant lesion, bruise to left hand from previous IV Neurological: Normal strength at 5/5 x4 extr, Normal tone, Dementia Assessment and Plan Syncopal episode Leukocytosis 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 Mild fusiform aneurysmal dilation of the ascending thoracic aorta up to 4.3 cm in caliber -ECHO pending.-serial Troponin 45/200/148 -telemetry -Keppra PO BID -Consult Dr. 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
--- NOTE | 2023-01-15 14:43 | EKG ---
Test Date: 2023-01-14 Test Time: 11:31:30 [employer]: [employer] MEASUREMENT RESULTS: Intervals: Rate: 100 NE: 210 QRSD: 116 QT: 376 QTc: 485 [place]: P: 55 NE: 210 QRS: -51 T: 91 INTERPRETIVE STATEMENTS: Sinus rhythm with 1st degree AV block Left axis deviation Left ventricular hypertrophy with QRS widening and repolarization abnormality Abnormal ECG Compared to ECG 06/15/2019 09:01:38 First degree AV block now present Left ventricular hypertrophy now present Early repolarization now present Sinus arrhythmia no longer present Atrial premature complex(es) no longer present Intraventricular conduction delay no longer present T-wave abnormality no longer present Myocardial infarct finding no longer present Electronically Signed On 01-15-23 14:41:03 CDT by Justin Reynolds
--- NOTE | 2023-01-15 19:57 | CON ---
Date of Consultation: 01/15/2023 Reason For Consultation: Syncope. History Of Present Illness: An 82-year-old female with history of dementia, hypertension, dyslipidem ia, CVA, Parkinson disease, hypothyroidism, who presented to the emergency room from a senior care a fter found to be unresponsive during some infusion, woke up, and she had episodes of vomiting. No ch est pain or palpitations. Past Medical History: As outlined above in HPI. Medications: Refer consultation sheet for detailed list. Allergies: NO KNOWN DRUG ALLERGIES. Family History: No premature coronary artery disease or cancer. Social History: She does not smoke or drink. Does not use any drugs. Review of Systems: All systems reviewed and they are negative except as mentioned in HPI. Physical Examination: Vital Signs: Reviewed. Head and Neck: Pupils are equal, reactive to light. Intact eye movements. No cervical lymphadenopa thy. Neck is supple. Thyroid is not enlarged. Lungs: Clear to auscultation bilaterally. No rhonchi, wheezing, or crackles. No accessory muscle u se. Heart: . No extra sounds. Abdomen: Soft, nontender. Bowel sounds positive. No organomegaly. No masses or hernia. No rigidi ty or rebound. Extremities: No clubbing, cyanosis. Intact pulses. Skin: No rashes or nodules. Neurologic: Alert, awake, oriented with confusion. No acute focal deficits appreciated. Lymph Nodes: No cervical or axillary lymphadenopathy. Investigations: Urinalysis, 5-10 white blood cells. BUN . Troponin 45, then 200, then 14 8 and hemoglobin is 12.6. Assessment And Recommendations: 1.Syncope. Etiology is not clear from the story. Obtain an echo. Monitor on telemetry for any car diac arrhythmia and plan accordingly. 2.There is no pulmonary embolism on CT scan. 3.Elevated troponin. Recommend a Lexiscan nuclear stress test on Wednesday and an echocardiogram if it has not already done. 4.Hypertension. Blood pressure controlled. 5.Urinary tract infection, on IV antibiotics. SR/MODL Voice ID: [id number] Report ID: [id number]
[2023-01-15] MEDS: JUVEN PACKET PO SCH (20:45)
[2023-01-15] MEDS: ATORVASTATIN 40 MG TAB PO SCH (20:46)
[2023-01-16] MEDS: LEVOTHYROXINE SOD 0.1 MG TAB PO SCH (05:01)
[2023-01-16] MEDS: NA CHLORIDE 0.9% 1,000 ML IV SCH (05:02)
[2023-01-16 06:47] LABS: Potassium 3.3 mEq/L (3.5-5.1)
[2023-01-16] MEDS: levETIRAcetam 500 MG TAB PO SCH ×2 (08:59→20:14)
[2023-01-16] MEDS: CARBIDOPA/LEVODOPA 25/100 TAB PO SCH ×4 (08:59→20:14)
[2023-01-16] MEDS: CLOPIDOGREL 75 MG TABLET PO SCH (08:59)
[2023-01-16] MEDS: ASPIRIN 81 MG CHEWABLE TABLET PO SCH (08:59)
[2023-01-16] MEDS ORDERED: POTASSIUM 25 MEQ EFFERV TAB PO ONE ×2 (09:00→23:30)
[2023-01-16] MEDS: CEFTRIAXONE 1,000 MG in NA CHLORIDE 0.9% 50 ML IVPB SCH (09:01)
[2023-01-16] MEDS: ENOXAPARIN 40 MG/0.4 ML SQ SCH (09:01)
[2023-01-16] MEDS: JUVEN PACKET PO SCH ×2 (09:07→20:15)
[2023-01-16 09:29] VITALS: O2SAT 96
[2023-01-16 10:54] LABS: Specific Gravity 1.007 (1.005-1.030); Urine Bacteria None Seen /HPF (<20); Urine Bilirubin NEGATIVE (Negative); Urine Blood Negative (Negative); Urine Clarity Turbid (Clear); Urine Color Colorless (Yellow); Urine Glucose NEGATIVE (Negative); Urine Protein NEGATIVE (Negative); Urine RBC <5 /HPF (None Seen); Urine Urobilinogen Normal (Normal); Urine pH 7.5 (5.0-7.0)
--- NOTE | 2023-01-16 11:36 | P.PN ---
Subjective Date of Service: 01/16/23 Chief Complaint: syncopal episode Subjective: No new changes, Doing well HPI 01/14/23: Theresa Duran is AN 82-year-old female with past medical history of Parkinson's, dementia, hypothyroidism, hypertension, hyperlipidemia, CVA, and migraine who presented to the ED via ambulance from the skilled nursing with complaints of unresponsiveness during a vitamin IV infusion. Theresa remembers eating breakfast this morning and laying in her bed to watch TV. She remembers the IV was placed in her left hand and it was hurting gaining access, she remembers fluid entering the IV, she remembers waking up to vomit on her chest, laying in stool and urine in the bed. Staff from the skilled nursing state she was unresponsive. EMS reports that she was awake, alert, and oriented upon their arrival. Theresa states that she does not have a history of seizures and does not remember having an episode similar to this in the past. Initial vitals BP 102/58, heart rate 99, respirations 18, temperature 97.5, pulse ox 96% on room air. Significant labs WBC 17.1 , troponin 45.6 redraw pending, and TSH 9.580. chest x-ray report reveals mediastinum is mildly prominent requiring CT angio which shows ascending thoracic aorta measuring 4.3 cm that is not seen to be dissecting. Will obtain a follow-up echo and consult Dr. Reynolds Theresa will be admitted to hospitalist service for further evaluation and treatment of syncopal episode. 01/15/23: Theresa is awake and pleasantly confused. She stated her age as 42, she thinks her house is outside her window. Serial Troponin 45/200/148, consulted Dr. Reynolds, waiting for recommendations. She denies fever, chills, CP, SOB, and BARRON. 01/16/23: Theresa is comfortable in bed, NAD, conversing well but remains confused. Anticipating stress test on Wednesday (01/18) with Dr. Reynolds. She remains afebrile and denies fever, chills, CP, and SOB. <Melina Quiñonez - Last Filed: 01/16/23 11:31> Date of Service: 01/16/23 <theodora carrizales - Last Filed: 01/16/23 13:36> Review of Systems 10-point ROS is otherwise unremarkable <Melina Quiñonez - Last Filed: 01/16/23 11:31> Physical Examination - Vital Signs Temperature: 98.0 F Blood Pressure: 153/76 Pulse: 69 Respirations: 18 Pulse Ox (%): 96 <Melina Quiñonez - Last Filed: 01/16/23 11:31> - Studies Laboratory Data (last 24 hrs) 01/16/23 01/15/23 06:06 13:50 Sodium 141 Potassium 3.3 L 3.4 L BUN 10 Creatinine 0.60 Glucose 90 <theodora carrizales - Last Filed: 01/16/23 13:36> Assessment And Plan - Plan Physical Exam General: In no apparent distress HEENT: Atraumatic, Normocephalic, PERRLA Neck: Supple, 2+ carotid pulse no bruit, JVD not distended Respiratory: Clear to auscultation bilaterally, Normal air movement Cardiovascular: No edema, Normal pulses, Regular rate/rhythm, Normal S1 S2 Capillary refill: <2 Seconds Gastrointestinal: Normal bowel sounds, Soft and benign Musculoskeletal: No clubbing, No swelling, No contractures Integumentary: No rashes, No breakdown, No significant lesion, bruise to left hand from previous IV Neurological: Normal strength at 5/5 x4 extr, Normal tone, Dementia Assessment and Plan Syncopal episode Leukocytosis 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 Mild fusiform aneurysmal dilation of the ascending thoracic aorta up to 4.3 cm in caliber -ECHO pending.-serial Troponin 45/200/148 -telemetry -Keppra PO BID -Consult Dr. 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 Cardiology Dr. Reynolds input appreciated. Echocardiogram done, result is pending. <theodora carrizales - Last Filed: 01/16/23 13:36>
[2023-01-16] MEDS: HYDRALAZINE HCL 20 MG/ML VIAL IV PRN ×2 (13:01→23:47)
[2023-01-16] MEDS: ATORVASTATIN 40 MG TAB PO SCH (20:14)
[2023-01-17 04:12] LABS: Potassium 3.4 mEq/L (3.5-5.1)
[2023-01-17] MEDS: LEVOTHYROXINE SOD 0.1 MG TAB PO SCH (05:38)
[2023-01-17] MEDS ORDERED: POTASSIUM CL SA 10 MEQ TAB PO ONE (06:00)
[2023-01-17] MEDS: ENOXAPARIN 40 MG/0.4 ML SQ SCH (08:39)
[2023-01-17] MEDS: CLOPIDOGREL 75 MG TABLET PO SCH (08:40)
[2023-01-17] MEDS: CARBIDOPA/LEVODOPA 25/100 TAB PO SCH ×4 (08:40→20:02)
[2023-01-17] MEDS: ASPIRIN 81 MG CHEWABLE TABLET PO SCH (08:44)
[2023-01-17] MEDS: levETIRAcetam 500 MG TAB PO SCH ×2 (08:44→20:02)
[2023-01-17] MEDS: CEFTRIAXONE 1,000 MG in NA CHLORIDE 0.9% 50 ML IVPB SCH (08:44)
[2023-01-17] MEDS: JUVEN PACKET PO SCH ×2 (08:45→20:02)
--- NOTE | 2023-01-17 12:18 | P.PN ---
Subjective Date of Service: 01/17/23 Chief Complaint: syncopal episode Subjective: No new changes, Doing well HPI 01/14/23: Theresa Duran is AN 82-year-old female with past medical history of Parkinson's, dementia, hypothyroidism, hypertension, hyperlipidemia, CVA, and migraine who presented to the ED via ambulance from the assisted with complaints of unresponsiveness during a vitamin IV infusion. Theresa remembers eating breakfast this morning and laying in her bed to watch TV. She remembers the IV was placed in her left hand and it was hurting gaining access, she remembers fluid entering the IV, she remembers waking up to vomit on her chest, laying in stool and urine in the bed. Staff from the assisted state she was unresponsive. EMS reports that she was awake, alert, and oriented upon their arrival. Theresa states that she does not have a history of seizures and does not remember having an episode similar to this in the past. Initial vitals BP 102/58, heart rate 99, respirations 18, temperature 97.5, pulse ox 96% on room air. Significant labs WBC 17.1 , troponin 45.6 redraw pending, and TSH 9.580. chest x-ray report reveals mediastinum is mildly prominent requiring CT angio which shows ascending thoracic aorta measuring 4.3 cm that is not seen to be dissecting. Will obtain a follow-up echo and consult Dr. Reynolds Theresa will be admitted to hospitalist service for further evaluation and treatment of syncopal episode. 01/15/23: Theresa is awake and pleasantly confused. She stated her age as 42, she thinks her house is outside her window. Serial Troponin 45/200/148, consulted Dr. Reynolds, waiting for recommendations. She denies fever, chills, CP, SOB, and BARRON. 01/16/23: Theresa is comfortable in bed, NAD, conversing well but remains confused. Anticipating stress test on Wednesday (01/18) with Dr. Reynolds. She remains afebrile and denies fever, chills, CP, and SOB. 01/17: Theresa is awake in bed, requests to get out of the bed. She remains pleasantly confused. Tolerating IV rocephin for the UTI. No complaints Review of Systems 10-point ROS is otherwise unremarkable Physical Examination - Vital Signs Temperature: 98.6 F Blood Pressure: 191/88 Pulse: 81 Respirations: 20 Pulse Ox (%): 97 - Studies Microbiology Data (last 24 hrs): 01/14/23 12:47 Catheterized Urine Flagler Count - Final <10,000 CFU/ML. 01/14/23 12:47 Catheterized Urine - Final Citrobacter Freundii Complex Gram Neg Torey Assessment And Plan - Plan Physical Exam General: In no apparent distress, confused HEENT: Atraumatic, Normocephalic, PERRLA Neck: Supple, 2+ carotid pulse no bruit, JVD not distended Respiratory: Clear to auscultation bilaterally, Normal air movement Cardiovascular: No edema, Normal pulses, Regular rate/rhythm, Normal S1 S2 Capillary refill: <2 Seconds Gastrointestinal: Normal bowel sounds, Soft and benign Musculoskeletal: No clubbing, No swelling, No contractures Integumentary: No rashes, No breakdown, No significant lesion, bruise to left hand from previous IV Neurological: Normal strength at 5/5 x4 extr, Normal tone, Dementia Assessment and Plan Syncopal episode Leukocytosis 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 Mild fusiform aneurysmal dilation of the ascending thoracic aorta up to 4.3 cm in caliber -ECHO pending.-serial Troponin 45/200/148 -telemetry -Keppra PO BID -Consult Dr. 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
--- NOTE | 2023-01-17 15:14 | PN ---
Subjective: Seen by bedside. No new complaints. Review of Systems: No chest pain, shortness of breath, orthopnea, or cough. No nausea, vomiting, or diarrhea. All othe r systems were reviewed, they were negative. Objective: Vital Signs: Reviewed. Head and Neck: Pupils are equal, reactive to light. Intact eye movements. No JVD. No cervical lym phadenopathy. Neck is supple. Thyroid is not enlarged. Lungs: Clear to auscultation bilaterally. No rhonchi, wheezing, or crackles. No accessory muscle u se. Heart: Regular rate and rhythm. No extra sounds. Abdomen: Soft, nontender. Bowel sounds positive. No organomegaly. No masses or hernia. No rigidi ty or rebound. Extremities: No clubbing, cyanosis. Intact pulses. Skin: No rash or nodule. Neurologic: Alert, awake, oriented x3. No acute focal deficits appreciated. Investigation: Labs were reviewed. Assessment And Recommendations: 1.Syncope with positive troponin. Echo is with normal ejection fraction. No major abnormalities. Obtain Lexiscan nuclear stress test tomorrow and further evaluate. 2.Elevated troponin. Plan as above. 3.Dyslipidemia. Continue statin. SR/MODL Voice ID: [id number] Report ID: [id number]
[2023-01-17] MEDS: ATORVASTATIN 40 MG TAB PO SCH (20:02)
[2023-01-18] MEDS: LEVOTHYROXINE SOD 0.1 MG TAB PO SCH (05:51)
--- NOTE | 2023-01-18 07:01 | ECHO ---
HEIGHT: 5 ft 4 in WEIGHT: 114 lb 9.6 oz DATE OF STUDY: 01/15/[address]: Darryl Gaona MD 2-DIMENSIONAL: YES M.MODE: YES DOPPLER: YES COLOR FLOW: YES TDS: YES PORTABLE: YES DEFINITY: BUBBLE STUDY: DIAGNOSIS: SYNCOPE CARDIAC HISTORY: CATHERIZATION: SURGERY: PROSTHETIC VALVE: PACEMAKER: MEASUREMENTS (cm) DIASTOLIC (NORMALS) SYSTOLIC (NORMALS) IVSd 0.9 (0.6-1.2) LA Diam 3.3 (1.9-4.0) LVEF 59% LVIDd 5.0 (3.5-5.7) LVIDs 3.4 (2.0-3.5) %FS 32% LVPWd 1.1 (0.6-1.2) Ao Diam 3.4 (2.0-3.7) 2 DIMENSIONAL ASSESSMENT: RIGHT ATRIUM: NORMAL LEFT ATRIUM: NORMAL RIGHT VENTRICLE: NORMAL LEFT VENTRICLE: NORMAL TRICUSPID VALVE: MILD TRICUSPID REGURGITATION MITRAL VALVE: MITRAL ANNULAR CALCIFICATION WITH MILD MITRAL REGURGITATION PULMONIC VALVE: NORMAL AORTIC VALVE: MILD AORTIC INSUFFICIENCY PERICARDIAL EFFUSION: NONE AORTIC ROOT: NORMAL LEFT VENTRICULAR WALL MOTION: NORMAL DOPPLER/COLOR FLOW: SEE BELOW COMMENTS: 1. NORMAL LEFT VENTRICULAR EJECTION FRACTION 55-60% WITH NORMAL WALL MOTION 2. GRADE I DIASTOLIC DYSFUNCTION 3. MILD MITRAL REGURGITATION, TRICUSPID REGURGITATION, AORTIC INSUFFICIENCY TECHNOLOGIST: MAGDY SHAFFER
[2023-01-18] MEDS: CLOPIDOGREL 75 MG TABLET PO SCH (08:50)
[2023-01-18] MEDS: levETIRAcetam 500 MG TAB PO SCH ×2 (08:50→21:55)
[2023-01-18] MEDS: ASPIRIN 81 MG CHEWABLE TABLET PO SCH (08:50)
[2023-01-18] MEDS: CARBIDOPA/LEVODOPA 25/100 TAB PO SCH ×4 (08:51→21:55)
[2023-01-18] MEDS: ENOXAPARIN 40 MG/0.4 ML SQ SCH (08:51)
[2023-01-18] MEDS: JUVEN PACKET PO SCH ×2 (08:58→21:56)
[2023-01-18] MEDS: HYDRALAZINE HCL 20 MG/ML VIAL IV PRN (08:58)
[2023-01-18] MEDS ORDERED: CIPROFLOXACIN HCL 250 MG TAB PO SCH (09:00)
[2023-01-18 10:17] LABS: Absolute Lymphocytes (CBC) 0.7 K/uL (0.7-4.9); Hematocrit 42.3 % (36.0-45.0); Lymphocytes % 11.7 % (15.3-44.8); MCV 90.9 fL (80-100); MPV 9.4 fL (7.6-11.3); Platelets 184 thou/uL (152-406); RBC Red Blood Cell Count 4.65 M/uL (3.86-4.86)
[2023-01-18 10:32] LABS: Potassium 3.6 mEq/L (3.5-5.1)
--- NOTE | 2023-01-18 15:47 | P.PN ---
Subjective Date of Service: 01/18/23 Chief Complaint: syncopal episode Subjective: No new changes, Doing well HPI 01/14/23: Theresa Duran is AN 82-year-old female with past medical history of Parkinson's, dementia, hypothyroidism, hypertension, hyperlipidemia, CVA, and migraine who presented to the ED via ambulance from the custodial with complaints of unresponsiveness during a vitamin IV infusion. Theresa remembers eating breakfast this morning and laying in her bed to watch TV. She remembers the IV was placed in her left hand and it was hurting gaining access, she remembers fluid entering the IV, she remembers waking up to vomit on her chest, laying in stool and urine in the bed. Staff from the custodial state she was unresponsive. EMS reports that she was awake, alert, and oriented upon their arrival. Theresa states that she does not have a history of seizures and does not remember having an episode similar to this in the past. Initial vitals BP 102/58, heart rate 99, respirations 18, temperature 97.5, pulse ox 96% on room air. Significant labs WBC 17.1 , troponin 45.6 redraw pending, and TSH 9.580. chest x-ray report reveals mediastinum is mildly prominent requiring CT angio which shows ascending thoracic aorta measuring 4.3 cm that is not seen to be dissecting. Will obtain a follow-up echo and consult Dr. Reynolds Theresa will be admitted to hospitalist service for further evaluation and treatment of syncopal episode. 01/15/23: Theresa is awake and pleasantly confused. She stated her age as 42, she thinks her house is outside her window. Serial Troponin 45/200/148, consulted Dr. Reynolds, waiting for recommendations. She denies fever, chills, CP, SOB, and BARRON. 01/16/23: Theresa is comfortable in bed, NAD, conversing well but remains confused. Anticipating stress test on Wednesday (01/18) with Dr. Reynolds. She remains afebrile and denies fever, chills, CP, and SOB. 01/17: Theresa is awake in bed, requests to get out of the bed. She remains pleasantly confused. Tolerating IV rocephin for the UTI. No complaints 01/18: Theresa is doing well. She will be transported by ambulance to [facility] for a NM stress test tomorrow 01/19. Procedure is scheduled for 1029 and she will be NPO at midnight tonight. She is in stable condition and appropriate for ambulance transport. Review of Systems 10-point ROS is otherwise unremarkable Physical Examination - Vital Signs Temperature: 98.3 F Blood Pressure: 179/90 Pulse: 84 Respirations: 16 Pulse Ox (%): 94 Assessment And Plan - Plan Physical Exam General: In no apparent distress, confused HEENT: Atraumatic, Normocephalic, PERRLA Neck: Supple, 2+ carotid pulse no bruit, JVD not distended Respiratory: Clear to auscultation bilaterally, Normal air movement Cardiovascular: No edema, Normal pulses, Regular rate/rhythm, Normal S1 S2 Capillary refill: <2 Seconds Gastrointestinal: Normal bowel sounds, Soft and benign Musculoskeletal: No clubbing, No swelling, No contractures Integumentary: No rashes, No breakdown, No significant lesion, bruise to left hand from previous IV Neurological: Normal strength at 5/5 x4 extr, Normal tone, Dementia Assessment and Plan Syncopal episode Leukocytosis 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 Mild fusiform aneurysmal dilation of the ascending thoracic aorta up to 4.3 cm in caliber -ECHO pending.-serial Troponin 45/200/148 -telemetry -Keppra PO BID -Consult Dr. Reynolds, Stress test Wednesday at 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
--- NOTE | 2023-01-18 19:45 | PN ---
Date of Progress Note: 01/18/2023 Subjective: Seen by bedside. No complaints. Review of Systems: No chest pain, shortness of breath, orthopnea, or cough. No nausea, vomiting, or diarrhea. All othe r systems were reviewed, they were negative. Objective: Vital Signs: Reviewed. Head and Neck: Pupils are equal, reactive to light. Intact eye movements. No JVD. No cervical lym phadenopathy. Neck is supple. Thyroid is not enlarged. Lungs: Clear to auscultation bilaterally. No rhonchi, wheezing, or crackles. No accessory muscle u se. Heart: Regular rate and rhythm. No extra sounds. Abdomen: Soft, nontender. Bowel sounds positive. No organomegaly. No masses or hernia. No rigidi ty or rebound. Extremities: No edema, clubbing, cyanosis. Intact pulses. Skin: No rash or nodule. Neurologic: Alert, awake, oriented x3. No acute focal deficits appreciated. Investigation: Labs were reviewed. Assessment And Recommendations: 1.Syncope, probably due to low blood pressure. At this point, I do not see a cardiac cause of it. 2.Elevated troponin. Plan for stress test. However, stress test is not available this week in the hospital. Patient does not have any active chest pain. She can be released and follow up as an outp atient and we will do stress test as an outpatient. 3.Chest pain. Continue statin. Cardiology will sign off. SR/MODL Voice ID: [id number] Report ID: [id number]
[2023-01-18] MEDS: ATORVASTATIN 40 MG TAB PO SCH (21:55)
[2023-01-19] MEDS: LEVOTHYROXINE SOD 0.1 MG TAB PO SCH (06:00)
--- NOTE | 2023-01-19 08:44 | P.DS ---
Admission Date: 01/16/23 Discharge Date: 01/19/23 Disposition: TRANSFER TO [facility] Discharge Condition: FAIR Reason for Admission: syncopal episode Consultations: Cardiology Procedures: Chest x-ray 01/14/2023 IMPRESSION: Mediastinum is mildly prominent. This probably indicates either an ectatic or aneurysmal aorta. Further evaluation with CT may be helpful CT chest 01/14/2023 FINDINGS: Pulmonary arteries are normal. No emboli or other suspicious finding. Beam hardening artifact somewhat limits evaluation at the lung bases. 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 Two vessel configuration of the arch. No evidence of dissection or mural hematoma. Mild to moderate burden of mixed density atherosclerotic plaque particularly along the descending aorta. . Mild dependent subsegmental right more than left basilar atelectasis. No suspicious mass or infiltrate in the lung parenchyma. No pleural thickening or pleural effusion. No pneumothorax. No abnormal mediastinal or hilar masses or lymphadenopathy seen. No chest wall mass or abnormal axilliary lymphadenopathy. Nonspecific mild fat stranding in the retroperitoneum, along the precaval region and second part of duodenum, nonspecific. Moderate gallbladder distention. 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 IMPRESSION: No evidence of acute central pulmonary emboli. 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 Nonspecific mild fat stranding in the retroperitoneum, may reflect a mild infectious or inflammatory process such as duodenitis, although other possibilities such as focal pancreatitis or cholangitis are possible. Clinical and lab correlation is recommended. 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 Echocardiogram 01/15/2023 COMMENTS: 1. NORMAL LEFT VENTRICULAR EJECTION FRACTION 55-60% WITH NORMAL WALL MOTION 2. GRADE I DIASTOLIC DYSFUNCTION 3. MILD MITRAL REGURGITATION, TRICUSPID REGURGITATION, AORTIC INSUFFICIENCY CT head 01/14/2023 FINDINGS: An intracranial bleed is not seen The ventricles are normal in caliber No extra-axial fluid collection is noted. 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 Fluid within the sinuses/ mastoids is not seen. IMPRESSION: No acute intracranial abnormality is seen If patient's symptoms persist MRI of the brain would be recommended Brief History of Present Illness: Theresa Duran is AN 82-year-old female with past medical history of Parkinson's, dementia, hypothyroidism, hypertension, hyperlipidemia, CVA, and migraine who [facility] with complaints of unresponsiveness during a vitamin IV infusion. Theresa remembers eating breakfast this morning and laying in her bed to watch TV. She remembers the IV was placed in her left hand and it was hurting gaining access, she remembers fluid entering the IV, she remembers waking up to vomit on her chest, laying in stool and urine in the bed. Staff from the jail state she was unresponsive. EMS reports that she was awake, alert, and oriented upon their arrival. Theresa states that she does not have a history of seizures and does not remember having an episode similar to this in the past. Initial vitals BP 102/58, heart rate 99, respirations 18, temperature 97.5, pulse ox 96% on room air. Significant labs WBC 17.1 , troponin 45.6 redraw pending, and TSH 9.580. chest x-ray report reveals mediastinum is mildly prominent requiring CT angio which shows ascending thoracic aorta measuring 4.3 cm that is not seen to be dissecting. Will obtain a follow-up echo and consult Dr. Rodolfo Cardenas will be admitted to hospitalist service for further evaluation and treatment of syncopal episode Hospital Course: Patient was admitted for syncopal event, she was found to have urinary tract infection. She was treated with IV Rocephin during hospitalization culture returned sensitive to Rocephin. She also had mildly elevated troponins after syncopal event, CTA of the chest was negative for pulmonary embolism, echocardiogram was performed with normal ejection fraction. She was evaluated by cardiology recommends outpatient stress test for further evaluation. She is cleared to be discharged back to jail on antibiotics for her urinary tract infection. Vital Signs/Physical Exam: Temp Pulse Resp BP Pulse Ox 97.6 F 68 16 144/73 H 96 01/19/23 08:00 01/19/23 08:00 01/19/23 08:00 01/19/23 08:00 01/19/23 08:00 General: Alert, In no apparent distress, Oriented x2 HEENT: Atraumatic, PERRLA, EOMI Neck: Supple, JVD not distended Respiratory: Clear to auscultation bilaterally, Normal air movement Cardiovascular: Regular rate/rhythm, Normal S1 S2 Capillary refill: <2 Seconds Gastrointestinal: Normal bowel sounds, No tenderness Musculoskeletal: No tenderness Integumentary: No rashes Neurological: Normal speech, Normal tone, Normal affect Lymphatics: No axilla or inguinal lymphadenopathy Laboratory Data at Discharge: WBC 5.90 thou/uL (4.3-10.9) 01/18/23 09:50 Hgb 14.3 g/dL (12.0-15.0) 01/18/23 09:50 Hct 42.3 % (36.0-45.0) 01/18/23 09:50 Plt Count 184 thou/uL (152-406) 01/18/23 09:50 PT 12.8 SECONDS (9.5-12.5) H 01/14/23 11:18 INR 1.16 01/14/23 11:18 APTT 29.7 SECONDS (24.3-36.9) 01/14/23 11:18 Sodium 138 mEq/L (136-145) 01/18/23 09:50 Potassium 3.6 mEq/L (3.5-5.1) 01/18/23 09:50 BUN 20 mg/dL (7-18) H 01/18/23 09:50 Creatinine 0.56 mg/dL (0.55-1.02) 01/18/23 09:50 Glucose 102 mg/dL (74-106) 01/18/23 09:50 Phosphorus 2.9 mg/dL (2.5-4.9) 01/15/23 02:25 Magnesium 1.9 mg/dL (1.6-2.4) 01/15/23 02:25 Total Bilirubin 0.3 mg/dL (0.2-1.0) 01/14/23 11:18 AST 11 U/L (15-37) L 01/14/23 11:18 ALT < 10 U/L (13-56) L 01/14/23 11:18 Alkaline Phosphatase 56 U/L (45-117) 01/14/23 11:18 Triglycerides 86 mg/dL (<150) 01/15/23 02:25 Cholesterol 140 mg/dL (<200) 01/15/23 02:25 HDL Cholesterol 48 mg/dL (40-60) 01/15/23 02:25 Cholesterol/HDL Ratio 2.92 01/15/23 02:25 Home Medications: Aspirin Chewable [Aspirin Chewable*] 1 tab PO DAILY 06/14/19 Clonidine HCl [Catapres*] 0.2 mg PO TID 06/14/19 Levothyroxine Sodium 100 mcg PO [id number] 06/14/19 Olmesartan/Hydrochlorothiazide [Olmesartan-Hctz 40-12.5 mg Tab] 1 each PO DAILY 06/14/19 Atorvastatin Calcium [Lipitor] 40 mg PO BEDTIME #30 tab 06/15/19 Carbidopa/Levodopa [Carbidopa-Levodopa 25-100 Tab] 1 tab PO QID #90 tablet 06/15/19 Clopidogrel Bisulfate [Plavix*] 75 mg PO DAILY #30 tablet 06/15/19 Cefpodoxime Proxetil 100 mg PO BID #10 tab 01/19/23 New Medications: Cefpodoxime Proxetil 100 mg PO BID #10 tab Physician Discharge Instructions: You were admitted to the hospital for a syncopal event, troponin level/cardiac enzymes were mildly elevated. You had a echocardiogram and CT scan of your chest with contrast which did not demonstrate any acute findings noted explain your syncopal episode. Cardiology recommends outpatient stress test for further evaluation of noted troponin level since you have remained chest pain-free during hospitalization with stable vital signs. [facility] will be [facility] with a [facility] for antibiotic for urinary tract infection. Diet: AHA Activity: Fall precautions Followup: Justin Reynolds MD [ACTIVE - CAN ADMIT] - 1-2 Weeks NONE,NONE [Primary Care Provider] - 1-2 Weeks Time spent managing pt's care (in minutes): 30
[2023-01-19] MEDS: JUVEN PACKET PO SCH (09:00)
[2023-01-19] MEDS: ASPIRIN 81 MG CHEWABLE TABLET PO SCH (09:23)
[2023-01-19] MEDS: levETIRAcetam 500 MG TAB PO SCH (09:23)
[2023-01-19] MEDS: CARBIDOPA/LEVODOPA 25/100 TAB PO SCH ×2 (09:24→13:33)
[2023-01-19] MEDS: ENOXAPARIN 40 MG/0.4 ML SQ SCH (09:24)
[2023-01-19] MEDS: CLOPIDOGREL 75 MG TABLET PO SCH (09:24)
[2023-01-19 09:27] LABS: Absolute Lymphocytes (CBC) 0.8 K/uL (0.7-4.9); Hematocrit 41.5 % (36.0-45.0); Lymphocytes % 12.2 % (15.3-44.8); MCV 91.2 fL (80-100); MPV 9.4 fL (7.6-11.3); Platelets 192 thou/uL (152-406); RBC Red Blood Cell Count 4.56 M/uL (3.86-4.86)
[2023-01-19 10:06] LABS: SARS-CoV-2 Antigen Rapid Res Negative (Negative)
[2023-01-21 12:40] VITALS: BP 147/82; TEMP 98.1
[2023-01-21 14:14] VITALS: BMI 22.7
== END 2023-01-19 13:48 | DRG 690 ==
LOC: ER 11:03 → 2ND 14:23 → OBSVTOIN 01-16 11:56
PROVIDERS: ADMIT Internal Medicine; ATTEND Hospitalist
DX: N39.0 Urinary tract infection, site not specified (principal); L89.152 Pressure ulcer of sacral region, stage 2; I10 Essential (primary) hypertension; E03.9 Hypothyroidism, unspecified; I44.0 Atrioventricular block, first degree; E87.6 Hypokalemia; I71.21 Aneurysm of the ascending aorta, without rupture; D72.829 Elevated white blood cell count, unspecified; E78.00 Pure hypercholesterolemia, unspecified; F03.90 Unspecified dementia, unspecified severity, without behavioral disturbance, psychotic disturbance, mood disturbance, and anxiety; R29.6 Repeated falls; Z91.81 History of falling; Z88.8 Allergy status to other drugs, medicaments and biological substances; Z86.73 Personal history of transient ischemic attack (TIA), and cerebral infarction without residual deficits; Z79.02 Long term (current) use of antithrombotics/antiplatelets; Z79.82 Long term (current) use of aspirin; Z79.899 Other long term (current) drug therapy; Z79.890 Hormone replacement therapy; Z20.822 Contact with and (suspected) exposure to COVID-19
CPT/HCPCS: 36415; 70450; 71045; 71275; 80048; 80061; 80076; 81001; 83735; 84100; 84132; 84439; 84443; 84484; 85025; 85610; 85730; 87077; 87086; 87088; 87186; 87811; 93005; 93306; 96365; 96366; 97110; 97161; 97530; 99285; G0378; J0360; J0696; J1650; J7030; Q2035